=== PATIENT | female | born 1950 | race Caucasian/White ===

== ENCOUNTER 2024-04-08 22:19 | Emergency (ER) | payer MEDICARE, BC, SELFPAY ==
--- NOTE | ~2024-04-08 | CT_ITS ---
EXAMINATION: CT brain wo con DATE: 04/08/2024 23:16 INDICATION: Fall. TECHNIQUE: Computed tomography (CT) of the head was performed without intravenous contrast. The mA wa s adjusted according to patient size. Iterative reconstruction technique was employed. The dose-lengt h product was 681.00 mGy-cm. COMPARISON: None FINDINGS: There is no intracranial hemorrhage, acute infarction, or abnormal intracranial mass lesion . There are scattered areas of low attenuation in the cerebral white matter, which is within normal l imits for the patient's age. The ventricles are normal in size. There is mild mucosal thickening in t he paranasal sinuses. There are likely changes of ocular lens replacement surgeries. There is a small left mastoid effusion. There is a right-sided scalp soft tissue swelling. IMPRESSION: 1. Normal aging brain. Reviewed, dictated and finalized at location A. H CHEMIST IMPRESSION: 1. Normal aging brain.
--- NOTE | ~2024-04-08 | XR_ITS ---
EXAMINATION: XR hip RT min 2V DATE: 04/08/2024 22:50 INDICATION: Fall. TECHNIQUE: 3 views of right hip were obtained. COMPARISON: None. FINDINGS: Alignment is normal. No acute fracture. There is internal fixation of proximal right femur with antegrade intramedullary wilfredo, femoral head/neck screw, and distal interlocking screw. Partially visualized is a lateral plate with screws of the femoral diaphysis with cable. There are changes of a nterior and posterior fusion procedures in lumbosacral spine. There is mild right hip osteoarthritis. IMPRESSION: 1. Mild right hip osteoarthritis. Reviewed, dictated and finalized at location A. CLING ATTENDANT
[2024-04-08 22:19] VITALS: BP 142/63; PULSE 77; RESP 18; TEMP 36.6; O2SAT 100
--- OUTSIDE RECORDS SUMMARY | 2024-04-08 22:20 | XMS_ITS | Referral Summary ---
Author Organization [facility] al Address [address] [place] [address] Care Team Providers Care Butadiene Compressor Operator Name Role Phone Aneudy Cheung MD Primary Care Provider Allergies Active Allergy Reactions Criticality Noted Date Comments Penicillins Hives,Swelling Medium 01/10/2013 Sumatriptan Unknown High 10/16/2017 Medications apixaban (ELIQUIS) 2.5 mg tabletIndications: VTE Prophylaxis Following Ortho Surgery Take 2.5 mg by mouth 2 (two) times a day. Indications: VTE Prophylaxis Following Ortho Surgery Active alendronate (Fosamax) 70 mg tabletIndications: Post-Menopausal Osteoporosis Take 70 mg by mouth every 7 days. Indications: decreased bone mass following menopause Active potassium chloride ER (potassium chloride ER) 10 mEq CR tabletIndications: hypokalemia Take 10 mEq by mouth daily. Indications: low amount of potassium in the blood Active CALCIUM CARBONATE ORALIndications:cerda pplement Take 600 mg by mouth daily. Indications: supplement Active cholecalciferol (Vitamin D3) 2,000 unit tabletIndications: Prevention of Vitamin D Deficiency Take 2,000 Units by mouth daily. Indications: prevention of vitamin D deficiency Active fludrocortisone 0.1 mg tabletIndications: Primary Adrenocortical Insufficiency Take 0.1 mg by mouth daily. 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 Indications: visible water retention Active gabapentin (NEURONTIN) 300 mg capsuleIndications :Neuropathic Pain Take 300 mg by mouth 3 (three) times a day as needed (pain). Indications: neuropathic pain Active levothyroxine (SYNTHROID) 88 mcg tabletIndications: hypothyroidism Take 88 mcg by mouth mobile sales technician before breakfast. Indications: a condition with low thyroid hormone levels Active meclizine (ANTIVERT) 12.5 mg tabletIndications: Vertigo Take 12.5 mg by mouth 3 (three) times a day as needed for dizziness. Indications: sensation of spinning or whirling Active montelukast (SINGULAIR) 10 mg tabletIndications: Maintenance Therapy for Asthma Take 10 mg by mouth nightly. Indications: controller medication for asthma Active multivitamin tabletIndications: Vitamin Deficiency Prevention Take 1 tablet by mouth daily. Indications: Treatment To Prevent Vitamin Deficiency Active oxyCODONE-acetamin ophen (PERCOCET) 5-325 mg per tabletIndications: Pain Take 1 tablet by mouth every 4 (four) hours as needed for pain. Indications: pain Active acetaminophen (TYLENOL) 325 mg tabletIndications: pain Take 650 mg by mouth every 4 (four) hours as needed for pain. Indications: pain Active rOPINIRole (REQUIP) 1 mg tablet 04/06/19 20 Active fluticasone propionate (Flonase Allergy Relief) 50 mcg/actuation nasal spray daily Active pravastatin (PRAVACHOL) 80 mg tablet TAKE 1 TABLET LATE IN THE DAY 11/05/19 19 Active traMADoL (ULTRAM) 50 mg tablet Take 50-100 mg by mouth every 6 (six) hours as needed 05/16/19 20 Active cetirizine (ZyrTEC) 10 mg tablet TAKE ONE TABLET BY MOUTH EVERY DAY 05/26/19 21 Active cyclobenzaprine (FLEXERIL) 5 mg tablet TAKE ONE TABLET BY MOUTH AT BEDTIME 01/05/20 20 Active liraglutide (Victoza 2-Rick) 0.6 mg/0.1 mL (18 mg/3 mL) injection Inject under the skin 06/13/19 21 Active BD Ultra-Fine Micro Pen Needle 32 gauge x 1/4 needle 03/29/19 22 Active Accu-Chek Nicolasa Plus test strp strip USE 1 STRIP TO CHECK GLUCOSE ONCE DAILY 06/12/19 22 Active neomycin-polymyxin -dexAMETHasone (MAXITROL) 3.5mg/mL-10,000 unit/mL-0.1 % ophthalmic suspension INSTILL ONE DROP IN EACH EYE THREE TIMES DAILY 06/18/19 22 Active liraglutide (VICTOZA) 0.6 mg/0.1 mL (18 mg/3 mL) injectionIndicatio ns:type 2 diabetes mellitus Inject 1.8 mg under the skin daily Indications: type 2 diabetes mellitus Active mometasone (NASONEX) 50 mcg/actuation nasal spray Administer 2 sprays into affected nostril(s) daily 08/20/19 22 Active prednisoLONE acetate (PRED FORTE) 1 % ophthalmic suspension ADMINISTER ONE DROP IN BOTH EYES FOUR TIMES DAILY 02/25/20 22 Active sodium chloride (MARIS 128) 2 % ophthalmic solution One drop every 4 hours right eye One drop bid left eye 03/20/19 23 Active sodium chloride 5 % ophthalmic ointment 0.25 inches daily 03/20/19 23 Active metFORMIN (GLUCOPHAGE) 1,000 mg tablet 06/07/19 23 Active fluorometholone (FML) 0.1 % ophthalmic suspension ADMINISTER ONE DROP IN BOTH EYES THREE TIMES DAILY 04/10/19 23 Active eszopiclone (LUNESTA) 3 mg tablet TAKE ONE TABLET BY MOUTH NIGHTLY NEEDED FOR INSOMNIA 06/07/19 23 Active Active Problems Problem Noted Date Diagnosed Date Primary osteoarthritis of right knee 03/17/2019 Dyslipidemia 02/28/2019 Type 2 diabetes mellitus without complication (C MS/HCC) 02/28/2019 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 01/08/2018 CECILIA (obstructive sleep apnea) 08/26/2016 Meibomian gland dysfunction (MGD) 06/14/2014 Immunizations Name Administration Dates Next Due Hep B Vaccine 07/18/2014,03/20/2014 HiB 07/18/2014,03/20/2014 Hib (PRP-OMP) 07/18/2014,03/20/2014 IPV 12/05/2014,03/20/2014 Influenza, Quadrivalent, Hig h Dose, Preservative Free, Intrr 12/10/2021,12/21/2020,10/26/2019 Influenza, Quadrivalent, Spl it, Preservative Free, Intramuscular 11/16/2017 Influenza, Trivalent, High D ose, Split, Preservative Free, Intramuscular 12/04/2018 Influenza, Trivalent, IM (MDV) 11/27/2016 Influenza, Trivalent, Preser vative Free, Intramuscular 12/13/2013 MMR 08/21/2015 Pneumococcal Conjugate PCV 13 10/26/2019 ,12/05/2014,07/18/2014,03/20 Pneumococcal Polysaccharide PPV23 12/10/2021 Polio, Unspecified 03/20/2014 Tdap 07/18/2014,03/20/2014 ZOSTER Recombinant 09/07/2019,05/24/2019 Social History Tobacco Use Types Packs/Day Years Used Date Smoking Tobacco: Former Cigarettes Smokeless Tobacco: Never Tobacco Cessation:Counseling Given: Not Answered Comments No Sex and Gender Information Value Date Recorded Sex Assigned at Not on file Legal Sex 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 Gender Identity Not on file Sexual Orientation Not on file Last Filed Vital Signs Vital Sign Reading Time Taken Comments Blood Pressure 98/54 06/20/2022 11:24 AM CDT Pulse 79 06/20/2022 11:24 AM CDT Temperature 36.4 ??C (97.5 ??F) 06/20/2022 11:19 AM C DT Respiratory Rate 20 06/20/2022 11:19 AM CDT Oxygen Saturation 96% 06/20/2022 11:24 AM CDT Inhaled Oxygen Concentration - - Weight 91 kg (200 lb 9.6 oz) 06/20/2022 11:19 AM CDT Height 153.2 cm (5' 0.32) 06/21/2021 1:40 PM CD T Body Mass Index 38.77 06/21/2021 1:40 PM CDT Plan of Treatment Not on file Procedures Procedure Name Priority Date/Time Associated Diagnosis Comments EGFR Routine 06/20/2022 11:01 AM CDT Acute myeloid leukemia not having achieved remission (HCC) SCREENING MAMMOGRAM 2D BILATERAL Schedule Routine, Read Routine (OP Routine) 07/15/2017 11:09 AM CDT Screening breast examination DEXA AXIAL SKELETON BONE DENSITY 1 OR MORE SITES Schedule Routine, Read Routine (OP Routine) 07/15/2017 10:26 AM CDT Osteopenia of multiple sites SERUM LIPID PANEL Routine 10/27/2014 11: 45 AM CDT SERUM HEPATITIS PANEL Routine 07/15/2013 10:11 AM CDT from Last 3 Months or Most Recently Relevant to Health Maintenance Results * eGFR (06/20/2022 11:01 AM CDT) eGFR >90 90 - 130 mL/min/1. 73 m2 MONICA MAGDALENO Comment: Interpretive Data Reference Interval Normal ?>/= 90 mL/min/1.73m2 Mildly decreased* ? 60 - 89 mL/min/1.73m2 Mildly to moderately decreased ?45 - 59 mL/min/1.73m2 Moderately to severely decreased ??30 - 44 mL/min/1.73m2 Severely decreased ?15 - 29 mL/min/1.73m2 Kidney Failure ?< 15 ??mL/min/1.73m2 *Relative to young adult level Estimated glomerular filtration rate is determined by the 2020 CKD-EPI equation recommended by the National Kidney Foundation (A Unifying Approach to GFR Estimation: Recommendations of the NKF-ASK Task Force on Reassessing the Inclusion of Race in Diagnosing Kidney Disease, JASN 202). The CKD-EPI equation should not be used for patients with unstable renal function and has not been validated in children and those over 70. Current interpretive data was last reviewed 2021. Testing performed by: [facility], [address] [place] [id number] Blood 06/20/2022 11:0 1 AM CDT 06/20/2022 11:02 AM CDT us Brunilda Abreu NP LAB BLOOD ORDERABLES Fin al Result SANJUANAMIGUELINA RASTA [facility] [place] [address] * Screening Mammogram 2D Bilateral (07/15/2017 11:09 AM CDT) Anatomical Region Laterality Modality Breast Bilateral Mammography Narrative 07/20/2017 8:39 AM CDT Screening Mammogram 2D Bilateral: 07/15/17 Clinical: Screening breast examination. ?? Prior Study Comparisons: 07/19/2012 Findings: Bilateral No significant masses, malignant type calcifications, skin thickening, nipple retraction, or significant lymphadenopathy is noted in either breast. ??The CAD review showed no significant findings. The breasts have scattered areas of fibroglandular density. Impression: BI-RADS?? ATLAS category (overall): 1 Negative ?? There is no mammographic evidence of malignancy. Routine Screening Mammogram in 1 Yr is recommended for bilateral Overall Assessment: 1 - Negative Aneudy Cheung MD IMG MAMMO PROCEDURES Final Result * Dexa Axial Skeleton Bone Density 1 or 2 Site (07/15/2017 10:26 AM CDT) Anatomical Region Laterality Modality Body N/A Digital Radiogra phy Impressions 07/15/2017 10:43 AM CDT Low bone mass (osteopenia) which depending on the clinical circumstances may result in a moderate increased risk of fragility fracture. If followup is to be done, for technical reasons, it should be performed on this same machine. Electronically signed by: JAY LEI MD Narrative 07/15/2017 10:43 AM CDT EXAM: ??Bone mineral density [facility]. HISTORY: ??66-year-old postmenopausal female taking calcium and vitamin D. ??Leukemia. DXA BMD was done at [facility] on a [employer] Discovery SL. Precision testing at this site has resulted in a least significant change of: Lumbar spine 0.031 g/sq cm Hip 0.023 g/sq cm BMD left femoral neck is 0.666 g/sq cm corresponding to a T score of -1.6. BMD total left hip is 0.764 g/sq cm corresponding to a T score of -1.5. BMD L1-L2 is 1.130 g/sq cm corresponding to a T score of 1.4. L3 and L4 excluded due to fusion hardware. COMPARISON: ??None. Procedure Note Jay Lei MD - 07/15/2017 EXAM: Bone mineral density [facility]. HISTORY: 66-year-old postmenopausal female taking calcium and vitamin D. Leukemia. DXA BMD was done at [facility] on a [employer] Discovery SL. Precision testing at this site has resulted in a least significant change of: Lumbar spine 0.031 g/sq cm Hip 0.023 g/sq cm BMD left femoral neck is 0.666 g/sq cm corresponding to a T score of -1.6. BMD total left hip is 0.764 g/sq cm corresponding to a T score of -1.5. BMD L1-L2 is 1.130 g/sq cm corresponding to a T score of 1.4. L3 and L4 excluded due to fusion hardware. COMPARISON: None. IMPRESSION: Low bone mass (osteopenia) which depending on the clinical circumstances may result in a moderate increased risk of fragility fracture. If followup is to be done, for technical reasons, it should be performed on this same machine. Electronically signed by: JAY LEI MD Aneudy Cheung MD IM DXA PROCEDURES Final Re sult * (ABNORMAL) Serum lipid panel (10/27/2014 11:45 AM CDT) [facility] Cholesterol 293(H) 0 - 200 mg/dl HISTORICAL RESULTS Comment: Interpretive Data Desirable: ?<200 mg/dL Borderline high: ??200-239 mg/dL High: ? >240 mg/dL Literature Reference: National Cholesterol Education Program (NCEP) Expert Panel on Detection, Evaluation, and Treatment of High Blood Cholesterol in Adults (Adult Treatment Panel III). ??Circulation 2004; 110:227. Current interpretive data was last revised on 2005. Triglycerides 181(H) 0 - 150 mg/dl HISTORICAL RESULTS Comment: Interpretive Data Desirable: ? < 150 mg/dL Borderline High: ? 150 - 199 mg/dL High: ?> 200 mg/dL Literature Reference: See Cholesterol Current interpretive data was last revised on 06. HDL 59 40 - 199 mg/dl HISTORICAL RESULTS Comment: Interpretive Data Less than 40 mg/dL - low; A major risk factor for heart disease. Greater than or equal to 60 mg/dL - High; ??considered protective of heart disease. Literature Reference: See Cholesterol Current interpretive data was last revised on 2007. LDL 197(H) 0 - 129 mg/dl HISTORICAL RESULTS Comment: Interpretive Data Optimal: ? < 100 mg/dL Near Optimal: ?100 - 129 mg/dL Borderline High: ?? 130 - 159 mg/dL High: ?> 160 mg/dL Literature Reference: See Cholesterol Current interpretive data was last revised on 06. Non-HDL cholesterol, calculated 234 mg/dl HISTORICAL RESULTS Comment: Interpretive Data When triglycerides are >200 mg/dL, non-HDL C is a secondary target of therapy, with a goal 30 mg/dL higher than the identified LDL-C goal. Reference: ??See Cholesterol Reference. Current interpretive data was last revised 2011. Serum 10/27/2014 11:4 5 AM CDT us Kim Sanz MD LAB BLOOD ORDERABLES Fi nal Result HISTORICAL RESULTS * Serum Hepatitis panel (07/15/2013 10:11 AM CDT) HBV surface ag Negative NEG HISTO RICAL RESULTS HCV ab Negative NEG HISTORICAL RESULTS Comment: Interpretive Data If confirmation is required, call Laboratory Customer Service to request sample to be sent to [facility] for Hepatitis C Virus (HCV) RNA Detection and Quantitation by Real-Time Reverse Environmental Programs Manager-PCR (RT-PCR). Current interpretive data was last revised on 2011 HBV core ab, IgM Negative NEG HIS TORICAL RESULTS Comment: Interpretive Data If test is reported as Equivocal, new sample should be drawn for testing. Current interpretive data was last revised on 2007. HAV ab, IgM Negative NEG HISTORIC AL RESULTS Comment: Interpretive Data If test is reported as Equivocal, new sample should be drawn in two weeks for testing. Current interpretive data was last revised on 2007. Serum 07/15/2013 10:1 1 AM CDT us Akash Hernandez MD LAB BLOOD ORDERABLES Final Resul t HISTORICAL RESULTS from Last 3 Months or Most Recently Relevant to Health Maintenance Insurance MEDICARE [facility] [employer] CHOICE MEDICARE ANTHEM ACCESS CHOICE MEDICARE ANTHEM ACCESS CHOICE Letitia RUIZ [place] [id number] MEDICARE BLUE ACC CHOICE OOS Care Teams Butadiene Compressor Operator Relationship Specialty Start Date End Date Aneudy Cheung MD [address] [place] [address] PCP - General 05/19/17
--- OUTSIDE RECORDS SUMMARY | 2024-04-08 22:20 | XMS_ITS | Referral Summary ---
Author Organization [employer] Address [address] [place] [address] Phone Care Team Providers Care Energy Sales Consultant Name Role Phone Aneudy Cheung MD Primary Care Provider [phone] Allergies Active Allergy Reactions Criticality Noted Date Comments Penicillin 09/27/2022 Sumatriptan 09/27/2022 Medications levothyroxine (Synthroid, Levoxyl) 88 mcg tabletIndications: hypothyroidism Take 88 mcg by mouth 1 (one) time each day before breakfast. Indications: a condition with low thyroid hormone levels 06/10/19 23 Active tiZANidine (Zanaflex) 4 mg tabletIndications: muscle spasm Take 4 mg by mouth every 8 (eight) hours if needed for muscle spasms. Indications: muscle spasm 12/05/19 22 Active sodium chloride (Mili 128) 2 % ophthalmic solutionIndication s:eye irritation Administer 1 drop into both eyes if needed for irritation. Indications: eye irritation 03/09/19 23 Active pravastatin (Pravachol) 80 mg tabletIndications: hyperlipidemia Take 80 mg by mouth 1 (one) time each day. Indications: excessive fat in the blood 04/24/19 22 Active rOPINIRole (Requip) 1 mg tabletIndications: restless leg syndrome Take 1 mg by mouth 1 (one) time each day. Indications: restless legs syndrome, an extreme discomfort in the calf muscles when sitting or lying down 03/05/20 22 Active fludrocortisone (Florinef) 0.1 mg tabletIndications: symptomatic orthostatic hypotension Take 1 tablet by mouth 1 (one) time each day. Indications: a feeling of dizziness upon standing due to a drop in blood pressure 09/03/19 Active metFORMIN, MOD, (Glumetza) 1,000 mg 24 hr tabletIndications: type 2 diabetes mellitus Take 1,000 mg by mouth 2 (two) times a day with meals. Indications: type 2 diabetes mellitus 06/10/19 Active gabapentin (Neurontin) 300 mg capsuleIndications :neuropathic pain Take 300 mg by mouth 3 (three) times a day. Indications: neuropathic pain 09/03/19 Active potassium chloride ER (Micro-K) 10 mEq ER capsuleIndications :hypokalemia prevention Take 10 mEq by mouth 1 (one) time each day. Indications: prevention of low potassium in the blood 09/09/19 Active furosemide (Lasix) 20 mg tabletIndications: edema Take 20 mg by mouth 1 (one) time each day. Indications: visible water retention 09/09/19 Active eszopiclone (Lunesta) 3 mg tabletIndications: insomnia Take 3 mg by mouth at night if needed for sleep. Indications: difficulty sleeping 06/07/19 Active cetirizine (ZyrTEC) 10 mg capsuleIndications :allergic conjunctivitis Take 10 mg by mouth 1 (one) time each day. Indications: allergic conjunctivitis 03/09/19 Active sodium chloride (Mili 128) 5 % ophthalmic ointmentIndication s:eye irritation Apply 1 application. to both eyes 1 (one) time each day if needed (eye irritation). Indications: eye irritation 03/09/19 Active ilocwfqymjjw-Lp-in on-minerals (Tab-A-Floyd Womens) 27-0.4 mg tabletIndications: vitamin deficiency Take 1 tablet by mouth 1 (one) time each day. Indications: vitamin deficiency 03/09/19 Active Ca comb no.1/vit D3/B6/FA/B12 (VITAMIN D3, CALCIUM CIT-PHOS, ORAL)Indications:s upplemement Take 1 tablet by mouth 1 (one) time each day. Indications: supplemement 03/09/19 Active liraglutide (Victoza 2-Rick) 0.6 mg/0.1 mL (18 mg/3 mL) injectionIndicatio ns:type 2 diabetes mellitus Inject 1.8 mg under the skin 1 (one) time each day. Indications: type 2 diabetes mellitus 09/04/19 Active acetaminophen (Tylenol) 500 mg tabletIndications: pain Take 1,000 mg by mouth every 8 (eight) hours. Indications: pain 09/25/19 Active Social History Tobacco Use Types Packs/Day Years Used Date Smoking Tobacco: Never Assessed OASIS D0700: Social Isolation Answer Da te Recorded Frequency of experiencing loneliness or isolatio n Never 11/06/2022 OASIS A1250: Transportation Answer Date Recorded Lack of Transportation (Medical) No 11/06/2022 Lack of Transportation (Non-Medical) No 11/06/2022 Patient Unable or Declines to Respond No 11/06/2022 OASIS B1300: Health Literacy Answer Eran e Recorded Frequency of needing help to read materials from doctor or pharmacy Never 11/06/2022 Comments Unknown Sex and Gender Information Value Date Recorded Sex Assigned at Not on file Legal Sex Female 3:42 PM CDT Gender Identity Not on file Sexual Orientation Not on file Last Filed Vital Signs Vital Sign Reading Time Taken Comments Blood Pressure 130/70 11/06/2022 8:48 AM CDT Pulse 54 11/06/2022 8:48 AM CDT Temperature 36.2 ??C (97.2 ??F) 11/06/2022 8:48 AM CD T Respiratory Rate 16 11/06/2022 8:48 AM CDT Oxygen Saturation 99% 11/06/2022 8:48 AM CDT Inhaled Oxygen Concentration - - Weight 91.2 kg (201 lb) 11/06/2022 8:48 AM CDT Height - - Body Mass Index - - Plan of Treatment Not on file Insurance MEDICARE Advance Directives For more information, please contact: [phone] (7:30 AM - 5PM [facility], 7 days a week) * Full Code (Latest Code Status on File) Date Activated Date Inactivated Comments 09/27/2022 2:12 PM Care Teams Energy Sales Consultant Relationship Specialty Start Date End Date Aneudy Cheung MD [address] [phone] PCP - General Internal Medicine 09/25/22
--- OUTSIDE RECORDS SUMMARY | 2024-04-08 22:20 | XMS_ITS | Clinical Summary ---
Author Organization [employer] Address [address] [place] [address] Phone Care Team Providers Care Front Desk Manager Name Role Phone Aneduy Cheung MD Primary Care Provider [phone] Allergies Active Allergy Reactions Criticality Noted Date [...] (eye irritation). Indications: eye irritation 03/09/19 Active vjrbgzwcpyjb-Vf-tj on-minerals (Tab-A-Floyd Womens) 27-0.4 mg tabletIndications: vitamin [...] Mass Index - - Plan of Treatment Health Maintenance Due Date Last Done Comments CT Colonography 1952 Colonoscopy 1952 Colorectal Cancer Screening 1952 FIT-DNA 1952 FIT 1952 FOBT 1952 Sigmoidoscopy 1952 MMR Vaccines (1 of 1 - Standard series) 1953 Varicella Vaccines (1 of 2 - 13+ 2-dose series) 1965 Mammogram 1992 DTaP,Tdap,and Td Vaccines (3 - Td or Tdap) 01/18/2015 07/18/2014, 03/20/2014 Complete Fall Risk Assessment 2017 COVID-19 Vaccine ( season) 2023 Influenza Vaccine (#1) 2023 , 12/21/2020, 10/26/2019, Additional history exists RSV Vaccine 60+ or (1 - 1-dose 75+ series) 11/19/2027 Zoster Vaccines Completed 09/07/2019, 05/24/2019 Pneumococcal Vaccine: 65+ Years Completed 12/10/2021, 10/26/2019, 12/05/2014, Additional history exists Pneumococcal Vaccine: Pediatrics (0 to 5 Years) and At-Risk Patients (6 to 64 Years) Aged Out 12/10/2021, 10/26/2019, 12/05/2014, Additional history exists No longer eligible based on patient's age to complete this topic HIB Vaccines Aged Out No longer eligi ble based on patient's age to complete this topic HPV Vaccines Aged Out No longer eligi ble based on patient's age to complete this topic Hepatitis A Vaccines Aged Out No long er eligible based on patient's age to complete this topic Hepatitis B Vaccines Aged Out No long er eligible based on patient's age to complete this topic IPV Vaccines Aged Out No longer eligi ble based on patient's age to complete this topic Meningococcal Vaccine Aged Out No dianelys jenny eligible based on patient's age to complete this topic RSV Vaccine <20 Months Aged Out No lo nger eligible based on patient's age to complete this topic Rotavirus Vaccines Aged Out No longer eligible based on patient's age to complete this topic [place] [address] Advance Directives For more information, please contact: [phone] (7:30 AM - 5PM [facility], 7 days a week) * Full Code (Latest Code Status on File) Date Activated Date Inactivated Comments 09/27/2022 2:12 PM Care Teams Front Desk Manager Relationship Specialty Start Date End Date Aneudy Cheung MD [address] [phone] PCP - General Internal Medicine 09/25/22
--- OUTSIDE RECORDS SUMMARY | 2024-04-08 22:20 | XMS_ITS | Clinical Summary ---
Author Organization [facility] Wilda mejia Address [address] [facility] [address] [place] [address] Care Team Providers Care Manager Costing Name Role Phone Aneudy Cheung MD Primary Care Provider [phone] Allergies Active Allergy Reactions Criticality Noted Date Comments Penicillins Hives High 09/03/2015 Sumatriptan Unknown High 10/16/2017 Medications Cholecalciferol, Vitamin D3, 2,000 unit Capsule Take 4,000 Int'l Units by mouth daily. Active multivitamin (DAILY-EMMA) tablet Take 1 Tablet by mouth daily. Active CALCIUM ORAL Take 1 Tablet by mouth daily. Active Lancing Device (BD LANCET DEVICE) Lancet device. DX: Diabetes type 2 testing BID. 100 Each 2 08/11/19 19 Active Blood-Glucose Meter (Blood Glucose Monitoring) Kit Use to check glucose BID E11.40 ACCUCHEK NICOLASA 1 Each 12/02/19 20 Active blood sugar diagnostic (Accu-Chek Nicolasa Plus test strp) StripIndications:T ype 2 diabetes mellitus with diabetic polyneuropathy, without long-term current use of insulin ([facility]) USE 1 STRIP TO CHECK GLUCOSE DAILY. DX: E11.9 100 Each 8 02/26/20 21 Active mometasone (NASONEX) 50 mcg/actuation Kenneth, Non-Aerosol Administer 2 Sprays in each nostril daily. 17 Gram 08/20/19 22 Active sodium chloride (MARIS-128) 5 % ointment Administer 0.25 Inches in both eyes daily at bedtime. 3.5 Gram 5 03/20/19 23 Active sodium chloride (MARIS 128) 2 % solution One drop every 4 hours right eye One drop bid left eye 15 mL 5 03/20/19 23 Active eszopiclone (LUNESTA) 3 mg TabletIndications: Sleep disturbance Take 1 Tablet (3 mg) by mouth nightly as needed for Insomnia. 30 Tablet 1 06/07/19 23 Active acetaminophen (TYLENOL) 500 mg tablet Take 2 Tablets (1,000 mg) by mouth every 8 hours as needed for Pain. 60 Tablet 10/14/19 23 Active furosemide (LASIX) 40 mg tabletIndications: Edema of left ankle Take 1 Tablet (40 mg) by mouth daily. 30 Tablet 1 12/13/19 23 Active potassium chloride (K-TAB) 20 mEq Extended Release tabletIndications: Edema of left ankle Take 1 Tablet (20 mEq) by mouth daily with breakfast. Take on days that you take Lasix 30 Tablet 1 12/13/19 23 Active pravastatin (PRAVACHOL) 80 mg tablet TAKE 1 TABLET LATE IN THE DAY 100 Tablet 3 02/03/20 23 Active Cetirizine (ZyrTEC) 10 mg CapsuleIndications :Acute recurrent maxillary sinusitis Take 10 mg by mouth daily. 90 Capsule 3 02/21/20 23 Active liraglutide (Victoza 3-Rick) 0.6 mg/0.1 mL (18 mg/3 mL)Indications:Typ e 2 diabetes mellitus with diabetic polyneuropathy, without long-term current use of insulin ([facility]) Inject 1.8 mg by subcutaneous injection daily. 27 mL 3 04/20/19 24 Active Insulin [place], Disposable, (BD Ultra-Fine Micro Pen Needle) 32 gauge x 1/4 Needle USE DIRECTED WITH VICTOZA 100 Each 3 04/20/19 24 Active metFORMIN (GLUCOPHAGE) 1,000 mg tabletIndications: Type 2 diabetes mellitus with diabetic polyneuropathy, without long-term current use of insulin (CMS/HCC) TAKE 1 TABLET BY MOUTH TWICE DAILY WITH MEALS 180 Tablet 3 07/16/19 24 Active rOPINIRole (REQUIP) 1 mg tabletIndications: Restless leg syndrome take 1 tablet daily 90 Tablet 3 07/16/19 24 Active levothyroxine 88 mcg tabletIndications: Acquired hypothyroidism TAKE 1 TABLET BY MOUTH DAILY IN THE MORNING 90 Tablet 3 07/16/19 24 Active tiZANidine (ZANAFLEX) 4 mg TabletIndications: Myalgia, other site Take 1 Tablet (4 mg) by mouth 2 times daily as needed for Spasm. 180 Tablet 3 08/24/19 24 Active traMADoL (ULTRAM) 50 mg tabletIndications: Bilateral leg weakness TAKE ONE TABLET BY MOUTH EVERY TWELVE HOURS NEEDED FOR PAIN 60 Tablet 1 08/24/19 24 Active apixaban (Eliquis) 5 mg tabletIndications: Acute deep vein thrombosis (DVT) of popliteal vein of left lower extremity (CMS/HCC) TAKE 1 TABLET BY MOUTH TWICE DAILY 200 Tablet 3 08/27/19 24 Active empagliflozin (JARDIANCE) 25 mg tablet Take 1 Tablet (25 mg) by mouth daily in the morning. 100 Tablet 3 08/31/19 24 Active fludrocortisone (FLORINEF) 0.1 mg tablet TAKE 1 TABLET BY MOUTH DAILY 90 Tablet 3 02/15/20 24 Active gabapentin (NEURONTIN) 300 mg capsuleIndications :Type 2 diabetes mellitus with diabetic polyneuropathy, without long-term current use of insulin ([facility]) TAKE 1 CAPSULE BY MOUTH 3 TIMES DAILY 270 Capsule 3 02/29/20 24 Active Active Problems Patient Care Coordination No te Formatting of this note migh t be different from the original. Produce Assistant-Dr. Raymond Moore ([place]) Problem Noted Date Diagnosed Date Primary osteoarthritis of right knee 03/17/2019 Acute blood loss anemia 03/17/2019 Dyslipidemia 02/28/2019 Type 2 diabetes mellitus without complication CECILIA (obstructive sleep apnea) 08/26/2016 Morbid obesity due to excess calories 08/26/2016 Encounters Date Type Department Care Team Description 04/05/2024 External Device Data STL ABSTRACTION Provider, Abstract 03/04/2024 Telephone [facility] [place] [address] [place] [address] [address] [place] [phone] Aneudy Cheung MD No Show; No Show # 1 02/28/2024 Refill [facility] [place] [address] [facility] [address] [place] [phone] Aneudy Cheung MD Type 2 diabetes mellitus with diabetic polyneuropathy, without long-term current use of insulin ([facility]) 02/14/2024 [facility] Internal Medicine - [address] [place] [phone] Aneudy Cheung MD from Last 3 Months Immunizations Immunization Administration Dates Next Due (ADACEL/BOOSTRIX)(10 YR UP) TDAP VACCINE, 0.5ML, IM 07/18/2014,03/20/2014 (IPOL)(6 WKS AND UP) POLIOVI LISA VACCINE, INACTIVATED (IPV), 3 DOSE, SUBCUT OR IM 12/05/2014,03/20/2014 (M-M-R II/PRIORIX)(12 MO UP) MEASLES, MUMPS AND RUBELLA VIRUS VACCINE, 0.5 ML IM/SUBCUT 08/21/2015 (PEDVAXHIB)(2 - 71 MOS) HIB PRP-OMP VACCINE, 3 DOSE, 0.5 ML IM0] 07/18/2014,03/20/2014 (PFIZER)(12 YR UP) COVID-19 VACCINE - EMERGENCY USE AUTHORIZATION, MRNA, [id number](PF) 30 MCG/0.3 ML IM SUSP 10/01/2020,09/07/2020 (PREVNAR 13)(6 WKS UP) PNEUM OCOCCAL CONJUGATE (PCV13) 0.5 ML, IM 10/26/2019,12/05/2014,07/18/2014,03/20 (SHINGRIX)(50 YRS UP) ZOSTER VACCINE RECOMBINANT, 0.5 ML, IM 09/06/2019,05/20/2019 HIB, Unspecified Formulation 07/18/2014,03/20/19 15 Hepatitis B Vaccine 07/18/2014,03/20/2014 INFLUENZA VACCINE HIGH DOSE QUADRIVALENT 65 YR UP PF IM 12/12/2022,12/10/2021,12/21/2020,10/25 INFLUENZA VACCINE QUADRIVALE NT 3 YR UP PF IM 11/16/2017 Influenza Seasonal Unspecifi ed Formulation PF IM 12/13/2013 Influenza Vaccine High Dose 65+ Yrs IM 9 Influenza Vaccine Split 3+ Yrs IM 11/27/2016 PNEUMOVAX (PPSV23) pneumococ juliet polysaccharide 23-valent Vaccine 12/10/2021 Poliovirus Vaccine, Unspecif ied Formulation 03/20/2014 Family History Medical History Relation Name Comments Diabetes Brother Heart Disease Brother Healthy Daughter 1 Kaylan Bipolar Disorder Daughter 2 Gia Aneurysm Father Heart Disease Father Blindness Maternal Aunt Diabetes Maternal Aunt Cancer Maternal Cousin Major Thryoid Heart Disease Maternal Grandfather Diabetes Maternal Grandmother Diabetes Mother Heart Disease Mother Tuberculosis Mother Heart Disease Paternal Grandfather Unknown Paternal Grandmother Diabetes Sister Heart Disease Sister Tuberculosis Sister Healthy Son Sheldon Breast Cancer Neg Hx Ovarian Cancer Neg Hx Relation Name Status Comments Brother Daughter 1 Kaylan Alive Daughter 2 Gia Alive Father Maternal Aunt Alive Maternal Cousin Major Alive Maternal Grandfather Maternal Grandmother Mother Paternal Grandfather Paternal Grandmother Sister Son Sheldon Alive Social History Tobacco Use Types Packs/Day Years Used Date Smoking Tobacco: Former Cigarettes 0.3 10 0 03/09/1986 - 03/09/1996 Smokeless Tobacco: Never Tobacco Cessation:Counseling Given: Not Answered Alcohol Use Standard Drinks/Week Comments No 0 (1 standard drink = 0.6 oz pur e alcohol) Financial Resource Strain Answer Date R ecorded How hard is it for you to pa y for the very basics like food, housing, medical care, and heating? Somewhat hard 12/24/2021 Food Insecurity Answer Date Recorded In the past 12 months, have you worried that your food would run out before you had money to buy more? Patient declined 2021 In the past 12 months, did y ou run out of food and didn't have money to buy more? Patient declined 12/24/2021 Transportation Needs Answer Date Record ed In the past 12 months, has l ack of transportation kept you from medical appointments or from getting medications? No 12/24/2021 Lack of Transportation (Non-Medical) Not on file 12/24/2021 Feeling Safe Answer Date Recorded Are you in a relationship wi th someone who hurts you emotionally and/or physically? No 09/23/2022 Food Insecurity Answer Date Recorded Patient needs follow up regarding: Not on file 05/11/2023 Transportation Needs Answer Date Record ed Patient needs follow up regarding: Not on file 05/11/2023 Housing Stability Answer Date Recorded Patient needs follow up regarding: Not on file 05/11/2023 Utility Needs Answer Date Recorded Patient needs follow up regarding: Not on file 05/11/2023 Comments No Sex and Gender Information Value Date Recorded Sex Assigned at Not on file Legal Sex Female 12:21 PM CDT Gender Identity Not on file Sexual Orientation Not on file Last Filed Vital Signs Vital Sign Reading Time Taken Comments Blood Pressure 128/76 08/24/2023 11:26 AM CDT Pulse 90 08/24/2023 11:26 AM CDT Temperature 36.8 ??C (98.2 ??F) 08/24/2023 11:26 AM C DT Respiratory Rate 12 06/10/2023 12:56 PM CDT Oxygen Saturation 96% 08/24/2023 11:26 AM CDT Inhaled Oxygen Concentration - - Weight 90 kg (198 lb 6.4 oz) 08/24/2023 11:26 AM CDT Height 152.4 cm (5') 08/24/2023 11:26 AM CDT Body Mass Index 38.75 08/24/2023 11:26 AM CDT Plan of Treatment Upcoming Encounters Date Type Department Care Team (Late st Contact Info) Description 06/08/2024 1:00 PM CDT Office Visit [facility] Pulmonology and Sleep Med - [address] [place] [phone] Rocco Lemos MD [address] [place] [phone] 08/25/2024 10:00 AM CDT Office Visit [facility] [place] [address] [facility] [address] [place] [phone] Aneudy Cheung MD [address] [facility] [address] [place] [phone] Health Maintenance Due Date Last Done Comments FIT/FOBT Q 1 YEAR (AUTO ORDER) 1970 COLORECTAL CANCER SCREENING (AUTO ORDER) 1997 COLORECTAL SCREENING 1997 FIT/FOBT Q 1 year 1997 Flex Sig/CT Colonography Q 5 years 1997 RSV VACCINE (60+ or ) (1 - Risk 60-74 years 1-dose series) 2012 DIABETES ANNUAL RETINAL EXAM 04/10/202304/2022, 04/10/2022, 04/10/2022, Additional history exists INFLUENZA VACCINE (#1) 2023 3, 12/10/2021, 12/21/2020, Additional history exists DIABETES HBA1C Q 6 MONTHS 02/23/20242023, 02/20/2023, 09/12/2022, Additional history exists Colorectal Cancer Screening 06/03/2024 FIT-DNA Q 3 years 06/03/2024 06/03/2021 FIT/ DNA Q 3 YEARS (AUTO ORDER) 06/03/2024 , 06/03/2021 DIABETES ANNUAL FOOT EXAM 08/23/20242023, 06/06/2022, 06/06/2022, Additional history exists DIABETES MICROALBUMIN ANNUAL SCREEN 08/23/2024 08/24/2023, 06/06/2022, 06/01/2020, Additional history exists DIABETES: A1C (Auto Order) 08/23/202408/23, 02/20/2023, 09/12/2022, Additional history exists LDL CHOLESTEROL ANNUAL 08/23/2024 , 02/20/2023, 06/06/2022, Additional history exists Traditional Medicare (ACO) A nnual Wellness Visit 08/24/2024 08/24/2023, 12/30/2022, 12/24/2021, Additional history exists Colorectal Cancer Screening (AUTO ORDER) 06/03/2026 FLEX SIG/CT COLONOGRAPHY Q 5 YEARS (AUTO ORDER) 06/03/2026 06/03/2021, 06/03/2021 DTAP/TDAP/TD VACCINES Discontinued 07/18/2014, 015 OSTEOPOROSIS SCREENING Completed 8, 07/15/2017, 07/15/2017 ZOSTER VACCINE Completed 09/06/2019, 05/20/2019 COVID-19 Vaccine Discontinued 10/01/2020, 09/07/2020 PNEUMOCOCCAL VACCINE 65+ YEARS Completed 1 , 10/26/2019, 12/05/2014, Additional history exists Medical Devices Implanted Type Area Flat Surfacer Jewel Device Identifier Shelf Expiration Date Model / Serial / Lot Cable W/Crimp Ss 1.7 X 750mm 298.801.01s - [id number] Implanted:Qty : 1 on 09/23/2022 by Dahlia Durbin DO at [facility] Cable Right: Hip J&J- DEPUY SYNTHES 298.801.01S / / Cement Refobacin R 1x40gm [id number] - [id number] Implanted:Qty : 1 on 03/17/2019 by Sekou Rudd MD at [facility] Cement Right: Knee [employer] 11/06/2020 [id number] / / [id number] Cement Refobacin R 1x40gm [id number] - [id number] Implanted:Qty : 1 on 03/17/2019 by Sekou Rudd MD at [facility] Cement Right: Knee [employer] 11/06/2020 [id number] / / [id number] Stem Ext Nxgn 31l43xc 55-2229-778-1 5 - [id number] Implanted:Qty : 1 on 03/17/2019 by Sekou Rudd MD at [facility] Knee Right: Knee [employer] 02/05/2029 [id number] / / [id number] Comp Fem Nxgn Lcck 77-5696-528-9 2 - [id number] Implanted:Qty : 1 on 03/17/2019 by Sekou Rudd MD at [facility] Knee Right: Knee [employer] 05/06/202878-8368-353-9 2 / / [id number] Comp Tib Nxgn Stmd 58-6989-503-0 1 - [id number] Implanted:Qty : 1 on 03/17/2019 by Sekou Rudd MD at [facility] Knee Right: Knee [employer] 12/23/202813-0164-114-0 1 / / [id number] Stem Ext Nxgn [id number] 83-3564-583-1 4 - [id number] Implanted:Qty : 1 on 03/17/2019 by Sekou Rudd MD at [facility] Knee Right: Knee [employer] 07/07/2027 [id number] / / [id number] Patella Psn Ply 29mm 26-7573-039-2 9 - [id number] Implanted:Qty : 1 on 03/17/2019 by Sekou Rudd MD at [facility] Knee Right: Knee [employer] 12/06/2026 37-7598-187-2 9 / / [id number] Insert Nexgen Lcck 43-7663-314-1 4 - [id number] Implanted:Qty : 1 on 03/17/2019 by Sekou Rudd MD at [facility] Knee Right: Knee [employer] 09/05/2025 [id number] / / [id number] Lens Iol [place] 21.5 Sy60wf.215 - [id number] Implanted:Qty : 1 on 01/16/2022 by Oswaldo Coates DO at [facility] Lens Right: Eye [facility] [id number] 06/09/2025 SY60WF.215 / [id number] / Lens Iol [place] 21.5 Sy60wf.215 - [id number] Implanted:Qty : 1 on 01/23/2022 by Oswaldo Coates DO at [facility] Lens Left: Eye [facility] 06/15/2025 SY60WF.215 / [id number] / Nail Tfna [id number] 130?? 04.037.044s - [id number] Implanted:Qty : 1 on 09/23/2022 by Dahlia Durbin DO at [facility] Nail Right: Hip J&J- DEPUY SYNTHES 12/07/2031 04.037.044S / / [id number] Blade Helical Tfna 80mm 04.038.380s - [id number] Implanted:Qty : 1 on 09/23/2022 by Dahlia Durbin DO at [facility] Nail Right: Hip J&J- DEPUY SYNTHES 07/06/2030 04.038.380S / / [id number] Plate Condylar 4.5 Va-Lcp 02.124.414 - [id number] Implanted:Qty : 1 on 09/23/2022 by Dahlia Durbin DO at [facility] Plate Right: Hip J&J- DEPUY SYNTHES 02.124.414 / / Low Prof Lckng Screw F/Im Nail Implanted:Qty : 1 on 09/23/2022 by Dahlia Durbin DO at [facility] Right: Hip 10/07/2031 DEPUY SYNTHES-04.04 5.334S / / [id number] 5.0mm Locking Screw.26mm Implanted:Qty : 1 on 09/23/2022 by Dahlia Durbin DO at [facility] Right: Hip SYNTHES-42.23 1.226 / / 5.0mm Locking Screw.26mm Implanted:Qty : 1 on 09/23/2022 by Dahlia Durbin DO at [facility] Right: Hip SYNTHES-42.23 1.226 / / 5.0mm Locking Screw, 28mm Implanted:Qty : 1 on 09/23/2022 by Dahlia Durbin DO at [facility] Right: Hip SYNTHES-42.23 1.228 / / 5.0mm Locking Screw, 18mm Implanted:Qty : 1 on 09/23/2022 by Dahlia Durbin DO at [facility] Right: Hip SYNTHES-42.23 1.018 / / 5.0mm Locking Screw, 28mm Implanted:Qty : 1 on 09/23/2022 by Dahlia Durbin DO at [facility] Right: Hip SYNTHES-42.23 1.228 / / 5.0mm Locking Screw..16mm Implanted:Qty : 1 on 09/23/2022 by Dahlia Durbin DO at [facility] Right: Hip SYNTHES-42.23 1.016 / / 5.0mm Locking Screw..16mm Implanted:Qty : 1 on 09/23/2022 by Dahlia Durbin DO at [facility] Right: Hip SYNTHES-42.23 1.016 / / 5.0mm Locking Screw, 18mm Implanted:Qty : 1 on 09/23/2022 by Dahlia Durbin DO at [facility] Right: Hip SYNTHES-42.23 1.018 / / 5.0mm Locking Screw, 28mm Implanted:Qty : 1 on 09/23/2022 by Dahlia Durbin DO at [facility] Right: Hip SYNTHES-42.23 1.228 / / 34 Mm Variable Angle Locking Screw Implanted:Qty : 1 on 09/23/2022 by Dahlia Durbin DO at [facility] Right: Hip SYNTHES-42.23 1.234 / / 32 Mm- 5.0 Variable Angle Locking Implanted:Qty : 1 on 09/23/2022 by Dahlia Durbin DO at [facility] Right: Hip SYNTHES-42.23 1.232 / / 3.5 Va Locking Attachment Plate Implanted:Qty : 1 on 09/23/2022 by Dahlia Durbin DO at [facility] Right: Hip SYNTHES-02.22 1.174 / / Procedures Procedure Name Priority Date/Time Associated Diagnosis Comments LIPID PANEL Routine 08/24/2023 12:00 PM CDT Type 2 diabetes mellitus with diabetic polyneuropathy, without long-term current use of insulin ([facility]) Mixed hyperlipidemia HEMOGLOBIN A1C Routine 08/24/2023 12:00 PM CDT Type 2 diabetes mellitus with diabetic polyneuropathy, without long-term current use of insulin ([facility]) Mixed hyperlipidemia MICROALBUMIN/CREATI NINE RATIO, RANDOM UR Routine 08/24/2023 12:00 AM CDT Type 2 diabetes mellitus with diabetic polyneuropathy, without long-term current use of insulin ([facility]) COLON CANCER SCREEN, STOOL DNA Routine 06/03/2021 2:30 PM CDT Special screening for malignant neoplasms, colon XR DEXA BONE DENSITY AXIAL 1 OR MORE SITES Routine 07/15/2017 Osteopenia of multiple sites from Last 3 Months or Most Recently Relevant to Health Maintenance Results * (ABNORMAL) HEMOGLOBIN A1C (08/24/2023 12:00 PM CDT) HEMOGLOBIN A1C 6.5(H) <5.7 % of total Hgb [facility] Comment: For someone without known diabetes, a hemoglobin A1c value of 6.5% or greater indicates that they may have diabetes and this should be confirmed with a follow-up test. For someone with known diabetes, a value <7% indicates that their diabetes is well controlled and a value greater than or equal to 7% indicates suboptimal control. A1c targets should be individualized based on duration of diabetes, age, comorbid conditions, and other considerations. Currently, no consensus exists regarding use of hemoglobin A1c for diagnosis of diabetes for children. ?? ESTIMATED AVERAGE GLUCOSE (MG/DL) 140 mg/dL [facility] ESTIMATED AVERAGE GLUCOSE (MMOL/L) 7.7 mmol/L [facility] Comment: ? This test was performed on the Alessio stanley c503 platform. Effective 05/25/23, a change in test platforms from the [employer] Analyst to the Alessio stanley c503 may have shifted HbA1c results compared to historical results. Based on laboratory validation testing conducted at [facility], the Alessio platform relative to the Dunlap platform had an average increase in HbA1c value of < or = 0.3%. This difference is within accepted variability established by the National Glycohemoglobin Standardization Program. Note that not all individuals will have had a shift in their results and direct comparisons between historical and current results for testing conducted on different platforms is not recommended. Test Performed at: [facility] [place] [address] [address] [place] ??[phone] [facility] Blood 08/24/2023 12:0 0 PM CDT 08/24/2023 12:00 PM CDT us Aneudy Cheung MD CHEMISTRY ORDERABLES Final Res ult [facility] [phone] [facility] [place] [address] [address] [place] [address] * (ABNORMAL) LIPID PANEL (08/24/2023 12:00 PM CDT) CHOLESTEROL 240(H) <200 mg/dL [facility] HDL 50 > OR = 50 mg/dL [facility] TRIGLYCERIDE 112 <150 mg/dL [facility] LDL CALCULATED 166(H) mg/dL (calc) [facility] Comment: Reference range: <100 Desirable range <100 mg/dL for primary prevention; ?? <70 mg/dL for patients with CHD or diabetic patients with > or = 2 CHD risk factors. LDL-C is now calculated using the Viktoria calculation, which is a validated novel method providing better accuracy than the Friedewald equation in the estimation of LDL-C. Mike NGUYEN et al. JEANNIE. 2013;310(19): 7738-6063 (http://education.[employer]/faq/XXO785) CHOL/HDL RATIO 4.8 <5.0 (calc) [facility] NON-HDL CHOLESTEROL 190(H) <130 mg/dL (calc) [facility] Comment: For patients with diabetes plus 1 major ASCVD risk factor, treating to a non-HDL-C goal of <100 mg/dL (LDL-C of <70 mg/dL) is considered a therapeutic option. Test Performed at: [facility] [place] [address] [place] ??[phone] [facility] Blood 08/24/2023 12:0 0 PM CDT 08/24/2023 12:00 PM CDT us Aneudy Cheung MD CHEMISTRY ORDERABLES Final Res ult [facility] [phone] [place] [address] [place] [address] * MICROALBUMIN/CREATININE RATIO, RANDOM UR (08/24/2023 12:00 AM CDT) Creatinine, Urine 140 20 - 275 mg/dL [facility] MICROALBUMIN, URINE 0.8 See Note: mg/dL [facility] Comment: Reference Range: Reference Range Not established MICROALBUMIN/CREAT RATIO, UR 6 <30 mg/g creat [facility] Comment: The ADA defines abnormalities in albumin excretion as follows: Albuminuria Category ?Result (mg/g creatinine) Normal to Mildly increased ?? <30 Moderately increased ? 30-299 Severely increased ? > OR = 300 The ADA recommends that at least two of three specimens collected within a 3-6 month period be abnormal before considering a patient to be within a diagnostic category. Test Performed at: [facility] [address] [place], [place] ??[address] [facility] Richardson MD Urine URINE SPECIMEN OBTAINED BY CLEAN CATCH PROCEDURE / Unknown 08/24/2023 08/25/2023 6:40 AM CDT Aneudy Cheung MD URINE ORDERABLES Final Result [facility] [phone] [facility] [address] [place] [address] * COLON CANCER SCREEN, STOOL DNA (06/03/2021 2:30 PM CDT) COLOGUARD RESULT Negative Negative [facility] Comment: NEGATIVE TEST RESULT. A negative Cologuard result indicates a low likelihood that a colorectal cancer (CRC) or advanced adenoma (adenomatous polyps with more advanced pre-malignant features) ??is present. The chance that a person with a negative Cologuard test has a colorectal cancer is less than 1 in 1500 (negative predictive value >99.9%) or has an ??advanced adenoma is less than ??5.3% (negative predictive value 94.7%). These data are based on a prospective cross-sectional study of 10,000 individuals at average risk for colorectal cancer who were screened with both Cologuard and colonoscopy. (Julianne Middleton al, N Engl J Med 2014;370(14):0266-7548) The normal value (reference range) for this assay is negative. COLOGUARD RE-SCREENING RECOMMENDATION: Periodic colorectal cancer screening is an important part of preventive healthcare for asymptomatic individuals at average risk for colorectal cancer. ??Following a negative Cologuard result, the [place] Cancer Society and U.S. Multi-Society Task Force screening guidelines recommend a Cologuard re-screening interval of 3 years. References: [place] [employer] Guideline for Colorectal Cancer Screening: https://www.cancer.org/cancer/izvsk-asgaji-ufpeng/trqctnrwn-uniubkmql-vhttisr/ac s-rec ommendations.html.; Cody DK, Gerardo CR, Genny JamesK, Colorectal Cancer Screening: Recommendations for Physicians and Patients from the U.S. Multi-Society Task Force on Colorectal Cancer Screening , Am J Gastroenterology 2017; 112:6358-8477. TEST DESCRIPTION: Composite algorithmic analysis of stool DNA-biomarkers with hemoglobin immunoassay. ?? Quantitative values of individual biomarkers are not reportable and are not associated with individual biomarker result reference ranges. Cologuard is intended for colorectal cancer screening of adults of either sex, 45 years or older, who are at average-risk for colorectal cancer (CRC). Cologuard has been approved for use by the U.S. FDA. The performance of Cologuard was established in a cross sectional study of average-risk adults aged 50-84. Cologuard performance in patients ages 45 to 49 years was estimated by sub-group analysis of near-age groups. Colonoscopies performed for a positive result may find as the most clinically significant lesion: colorectal cancer [4.0%], advanced adenoma (including sessile serrated polyps greater than or equal to 1cm diameter) [20%] or non- advanced adenoma [31%]; or no colorectal neoplasia [45%]. These estimates are derived from a prospective cross-sectional screening study of 10,000 individuals at average risk for colorectal cancer who were screened with both Cologuard and colonoscopy. (Julianne Bailon et al, N Engl J Med 2014;370(14):9628-0026.) Cologuard may produce a false negative or false positive result (no colorectal cancer or precancerous polyp present at colonoscopy follow up). A negative Cologuard test result does not guarantee the absence of CRC or advanced adenoma (pre-cancer). The current Cologuard screening interval is every 3 years. ([place] [employer] and U.S. Multi-Society Task Force). Cologuard performance data in a 10,000 patient pivotal study using colonoscopy as the reference method can be accessed at the following location: www.Around Knowledge.Flashstarts/results. Additional description of the Cologuard test process, warnings and precautions can be found at www.Streakrd.com. Stool STOOL SPECIMEN / Unknown 06/03/2021 2:30 PM CDT 06/04/2021 9:14 PM CDT Aneudy Cheung MD BODY FLUIDS AND STOOLS Final R esult [employer] LINA BOJORQUEZ # [id number] [address] , [address] [place] [address] * (ABNORMAL) XR DEXA BONE DENSITY AXIAL 1 OR MORE SITES (07/15/2017) Anatomical Region Laterality Modality Other Aneudy Cheung MD DIAGNOSTIC IMAGING ORDERABLES Final Result from Last 3 Months or Most Recently Relevant to Health Maintenance Insurance [address] [place] [id number] MEDICARE PART A AND B [address] [id number] [employer] Medicare Part D Advance Directives For more information, please contact: [phone] * Full Code (Latest Code Status on File) Date Activated Date Inactivated Comments 09/23/2022 5:43 PM 09/24/2022 11:13 PM * Full Code Date Activated Date Inactivated Comments 09/23/2022 9:36 AM 09/23/2022 5:43 PM * Full Code Date Activated Date Inactivated Comments 09/23/2022 8:57 AM 09/23/2022 9:36 AM * Full Code Date Activated Date Inactivated Comments 01/23/2022 11:39 AM 01/23/2022 2:46 PM * Full Code Date Activated Date Inactivated Comments 01/23/2022 11:27 AM 01/23/2022 11:39 AM Care Teams Manager Costing Relationship Specialty Start Date End Date Aneudy Cheung MD [address] [place] [address] [place] [address] PCP - General Internal Medicine 09/03/15
--- OUTSIDE RECORDS SUMMARY | 2024-04-08 22:20 | XMS_ITS | Clinical Summary ---
Author Organization [facility] Address [address] [place] [address] Care Team Providers Care Nut Orchardist Name Role Phone Aneudy Cheung MD Primary [...] the adrenal glands produce less hormones called [place]'s disease Active furosemide (LASIX) 20 mg tabletIndications: Edema Take 20 mg by mouth daily. Indications: visible water retention Active gabapentin (NEURONTIN) 300 mg capsuleIndications :Neuropathic Pain Take 300 mg by mouth 3 (three) times a day as needed (pain). 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 Gender Identity Not on file Sexual Orientation Not on file Obstetrics History Para Term AB IAB SAB Ectopic Multiple Livin g Live Births 4 Date Outcome GA Total Labor Labor/2nd/3rd Weight Sex Type Anes PTL Cyndi A1 A5 Name Clin Last Filed Vital Signs Vital Sign Reading [...] 06/21/2021 1:40 PM CDT Plan of Treatment Health Maintenance Due Date Last Done Comments Albumin Creatinine Ratio, Urine 1952 Colon Cancer Screening-Colonoscopy 1952 Depression Screening 1952 Fall Risk Assessment 1950 Hemoglobin A1C 1952 Dilated Eye Exam 1952 Foot Exam 1950 Well Visit 65+ 2017 Osteoporosis Screening-Bone Density Scan 07/16/2019 07/15/2017, 07/15/2017, 07/15/2017, Additional history exists Covid-19 Vaccine (3 - Pfizer risk series) 10/29/2020 10/01/2020, 09/07/2020 Breast Cancer Screening-Mammogram 06/01/2021 06/01/2020, 12/10/2018, 07/20/2017, Additional history exists Lipid Panel 06/01/2021 06/01/2020, 08/07, 10/28/2018, Additional history exists eGFR 06/21/2023 06/20/2022, 06/21/2021 Influenza Vaccine (#1) 2023 , 12/21/2020, 10/26/2019, Additional history exists DTaP/Tdap/Td Vaccine (3 - Td or Tdap) 07/18/2024 07/18/2014, 03/20/2014 Hepatitis C Screening Completed 07/15/2013, 014 Zoster Vaccine Completed 09/07/2019, 05/24/2019 Pneumococcal vaccine 65+ Completed 022, 10/26/2019, 12/05/2014, Additional history exists Procedures Procedure Name Priority Date/Time Associated Diagnosis [...] 90 - 130 mL/min/1. 73 m2 MONICA BAER Comment: Interpretive Data Reference Interval Normal ?>/= [...] of Race in Diagnosing Kidney Disease, JASN 2020). The CKD-EPI equation should not be used for patients with unstable renal function and has not been validated in children and those over 70. Current interpretive data was last reviewed 2021. Testing performed by: [facility], [address] [place] [id number] Blood 06/20/2022 11:0 1 AM CDT 06/20/2022 11:02 AM CDT us Brunilda Abreu PLATE GLASS GRINDER LAB BLOOD ORDERABLES Fin al Result MONICA MAGDALENO [facility] Department [place] [address] * Screening Mammogram 2D Bilateral (07/15/2017 11:09 [...] for bilateral Overall Assessment: 1 - Negative us Aneudy Cheung MD IM MAMMO PROCEDURES Final Result * Dexa Axial [...] 10:43 AM CDT EXAM: ??Bone mineral density [facility]. HISTORY: ??66-year-old postmenopausal female taking calcium and vitamin D. ??Leukemia. DXA BMD was done at [facility] on a Soundtracker Discovery SL. Precision testing at this site [...] MD - 07/15/2017 EXAM: Bone mineral density [facility]. HISTORY: 66-year-old postmenopausal female taking calcium and vitamin D. Leukemia. DXA BMD was done at [facility] on a Hologic Discovery SL. Precision testing at this site [...] Serum lipid panel (10/27/2014 11:45 AM CDT) [facility] Cholesterol 293(H) 0 - 200 mg/dl HISTORICAL [...] to request sample to be sent to [facility] for Hepatitis C Virus (HCV) RNA Detection and Quantitation by Real-Time Reverse Head Bander And Liner Operator-PCR (RT-PCR). Current interpretive data was last revised [...] Recently Relevant to Health Maintenance Insurance MEDICARE [facility] [employer] CHOICE MEDICARE ANTHEM ACCESS CHOICE MEDICARE ANTHEM ACCESS CHOICE MEDICARE [facility] CHOICE OOS Care Teams Nut Orchardist Relationship Specialty Start Date End Date Aneudy Cheung MD [address] [place] [address] PCP - General 05/19/17
--- OUTSIDE RECORDS SUMMARY | 2024-04-08 22:20 | XMS_ITS | Clinical Summary ---
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 Gender Identity Not on file Sexual Orientation Not on file Plan of Treatment Health Maintenance Due Date Last Done Comments DTAP/TDAP/TD VACCINES (1 - Tdap) 11/19/1971 BREAST CANCER SCREENING 1992 COLORECTAL SCREENING 1997 Colorectal Cancer Screening 1997 FIT-DNA Q 3 years 1997 FIT/FOBT Q 1 year 1997 Flex Sig/CT Colonography Q 5 years 1997 PNEUMOCOCCAL VACCINE 65+ YEARS (1 of 1 - PCV) 11/19/19 03 ZOSTER VACCINE (1 of 2) 2002 OSTEOPOROSIS SCREENING 2017 INFLUENZA VACCINE (#1) 2023 RSV VACCINE (60+ or ) (1 - 1-dose 75+ series) 11/19/2027 Insurance [facility] Care Teams Call Center Specialist Relationship Specialty Start Date End Date Non-Staff, Physician NO ADDRESS ON FILE PCP - General 09/19/10
--- OUTSIDE RECORDS SUMMARY | 2024-04-08 23:05 | XMS_ITS | Clinical Summary ---
Author Organization [facility] Address [address] [place] [address] Care Team Providers Care Watch Guard Gate Name Role Phone Aneudy Cheung MD Primary Care Provider [phone] Allergies Active Allergy Reactions Criticality Noted Date [...] the adrenal glands produce less hormones called [place]ander's disease Active furosemide (LASIX) 20 mg tabletIndications: Edema Take 20 mg by mouth daily. Indications: visible water retention Active gabapentin (NEURONTIN) 300 mg capsuleIndications :Neuropathic Pain Take 300 mg by mouth 3 (three) times a day as needed (pain). Indications: neuropathic pain Active levothyroxine (SYNTHROID) 88 mcg tabletIndications: hypothyroidism Take 88 mcg by mouth negative cutter before breakfast. 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 Testing performed by: [facility], [address] [place] [id number] Blood 06/20/2022 11:0 1 AM CDT 06/20/2022 11:02 AM CDT us Brunilda Abreu ELECTRIC METER SETTER LAB BLOOD ORDERABLES Fin al Result MONICA MAGDALENO [facility] [place] [address] * Screening Mammogram 2D Bilateral (07/15/2017 11:09 [...] 10:43 AM CDT EXAM: ??Bone mineral density [facility]. HISTORY: ??66-year-old postmenopausal female taking calcium and vitamin D. ??Leukemia. DXA BMD was done at [facility] on a NETpeas Discovery SL. Precision testing at this site [...] MD - 07/15/2017 EXAM: Bone mineral density [facility]. HISTORY: 66-year-old postmenopausal female taking calcium and vitamin D. Leukemia. DXA BMD was done at [facility] on a Hologic Discovery SL. Precision testing [...] Serum lipid panel (10/27/2014 11:45 AM CDT) [facility] Cholesterol 293(H) 0 - 200 mg/dl [...] to request sample to be sent to [facility] for Hepatitis C Virus (HCV) RNA Detection and Quantitation by Real-Time Reverse Custom Tailor-PCR (RT-PCR). Current interpretive data was last revised [...] Recently Relevant to Health Maintenance Insurance MEDICARE [facility] [employer] CHOICE MEDICARE ANTHEM ACCESS CHOICE MEDICARE ANTHEM ACCESS CHOICE MEDICARE [facility] CHOICE OOS Care Teams Watch Guard Gate Relationship Specialty Start Date End Date Aneudy Cehung MD [address] [place] [address] PCP - General 05/19/17
--- OUTSIDE RECORDS SUMMARY | 2024-04-08 23:05 | XMS_ITS | Referral Summary ---
Author Organization [facility] Address [address] [place] [address] Care Team Providers Care Nurses Educator Name Role Phone Aneudy Cheung MD Primary Care Provider [phone] Allergies Active Allergy Reactions Criticality Noted Date [...] the adrenal glands produce less hormones called [place]'s disease Active furosemide (LASIX) 20 mg tabletIndications: Edema Take 20 mg by mouth daily. Indications: visible water retention Active gabapentin (NEURONTIN) 300 mg capsuleIndications :Neuropathic Pain Take 300 mg by mouth 3 (three) times a day as needed (pain). 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 Testing performed by: [facility], [address] [place] [phone] Blood 06/20/2022 11:0 1 AM CDT 06/20/2022 11:02 AM CDT us Brunilda Abreu NP LAB BLOOD ORDERABLES Fin al Result SANJUANAMIGUELINA RASTA One [facility] [place] [address] * Screening Mammogram 2D Bilateral (07/15/2017 11:09 [...] 10:43 AM CDT EXAM: ??Bone mineral density [facility]. HISTORY: ??66-year-old postmenopausal female taking calcium and vitamin D. ??Leukemia. DXA BMD was done at [facility] on a GetBulb Discovery SL. Precision testing at this site [...] MD - 07/15/2017 EXAM: Bone mineral density [facility]. HISTORY: 66-year-old postmenopausal female taking calcium and vitamin D. Leukemia. DXA BMD was done at [facility] on a HoloSemadic Discovery SL. Precision testing at this site [...] Serum lipid panel (10/27/2014 11:45 AM CDT) [facility] Cholesterol 293(H) 0 - 200 mg/dl HISTORICAL [...] to request sample to be sent to [facility] for Hepatitis C Virus (HCV) RNA Detection and Quantitation by Real-Time Reverse Career Development Associate-PCR (RT-PCR). Current interpretive data was last revised [...] Recently Relevant to Health Maintenance Insurance MEDICARE [facility] Address: [address] [address] [place] [address] [facility] [email or web address] CHOICE MEDICARE ANTHEM ACCESS CHOICE MEDICARE ANTHEM ACCESS CHOICE Letitia RUIZ [place] [id number] MEDICARE BLUE ACC CHOICE OOS Care Teams Nurses Educator Relationship Specialty Start Date End Date Aneudy Cheung MD [address] [place] [address] PCP - General 05/19/17
--- OUTSIDE RECORDS SUMMARY | 2024-04-08 23:05 | XMS_ITS | Clinical Summary ---
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
--- OUTSIDE RECORDS SUMMARY | 2024-04-08 23:05 | XMS_ITS | Referral Summary ---
Author Organization [facility] Address [address] [place] [address] Phone Care Team Providers Care Can Tender Name Role Phone Aneudy Cheung MD Primary Care Provider [phone] Allergies Active Allergy Reactions Criticality Noted Date [...] (eye irritation). Indications: eye irritation 03/09/19 Active dlyiivkjbnir-Ax-ze on-minerals (Tab-A-Floyd Womens) 27-0.4 mg tabletIndications: vitamin [...] Advance Directives For more information, please contact: [phone] (7:30 AM - 5PM [facility], 7 days a week) * Full Code (Latest Code Status on File) Date Activated Date Inactivated Comments 09/27/2022 2:12 PM Care Teams Can Tender Relationship Specialty Start Date End Date Aneudy Cheung MD [address] [address] PCP - General Internal Medicine 09/25/22
--- OUTSIDE RECORDS SUMMARY | 2024-04-08 23:05 | XMS_ITS | Clinical Summary ---
Author Organization [facility] Address [address] [place] [address] Phone Care Team Providers Care Civil Engineering Professional Name Role Phone Aneudy Cheung MD Primary Care Provider [phone] Allergies Active Allergy Reactions Criticality Noted Date [...] (eye irritation). Indications: eye irritation 03/09/19 Active tqexbnzydege-Pq-hi on-minerals (Tab-A-Floyd Womens) 27-0.4 mg tabletIndications: vitamin [...] age to complete this topic Insurance MEDICARE Advance Directives For more information, please contact: [phone] (7:30 AM - 5PM [facility], 7 days a week) * Full Code (Latest Code Status on File) Date Activated Date Inactivated Comments 09/27/2022 2:12 PM Care Teams Civil Engineering Professional Relationship Specialty Start Date End Date Aneudy Cheung MD [address] [address] PCP - General Internal Medicine 09/25/22
--- OUTSIDE RECORDS SUMMARY | 2024-04-08 23:05 | XMS_ITS | Clinical Summary ---
Author Organization [employer] Wilda mejia Address [address] [facility] [address] [place] [address] Care Team Providers Care Mac Operator Name Role Phone Aneudy Cheung MD Primary Care Provider [phone] Allergies Active Allergy Reactions Criticality Noted Date [...] polyneuropathy, without long-term current use of insulin ([facility]) USE 1 STRIP TO CHECK GLUCOSE DAILY. DX: E11.9 100 Each 8 02/26/20 21 Active mometasone (NASONEX) 50 mcg/actuation [place], Non-Aerosol Administer 2 Sprays in each nostril [...] polyneuropathy, without long-term current use of insulin ([facility]) Inject 1.8 mg by subcutaneous injection daily. 27 mL 3 04/20/19 24 Active Insulin [place], Disposable, (BD Ultra-Fine Micro Pen Needle) 32 [...] polyneuropathy, without long-term current use of insulin ([facility]) TAKE 1 CAPSULE BY MOUTH 3 TIMES DAILY 270 Capsule 3 02/29/20 24 Active Active Problems Patient Care Coordination No te Formatting of this note migh t be different from the original. Clinician Oncology-Dr. Raymond Moore ([place]) Problem Noted Date Diagnosed Date Primary osteoarthritis of right knee 03/17/2019 Acute blood loss anemia 03/17/2019 Dyslipidemia 02/28/2019 Type 2 diabetes mellitus without complication CECILIA (obstructive sleep apnea) 08/26/2016 Morbid obesity due to excess calories 08/26/2016 Encounters Date Type Department Care Team Description 04/05/2024 External Device Data STL ABSTRACTION Provider, Abstract 03/04/2024 Telephone [facility] Internal Medicine - [place] [address] [place] [address] [address] [place] [phone] Aneudy Cheung MD No Show; No Show # 1 02/28/2024 Refill [facility] Internal Medicine - [place] [address] [place] [phone] Aneudy Cheung MD Type 2 diabetes mellitus with diabetic polyneuropathy, without long-term current use of insulin ([facility]) 02/14/2024 [facility] Internal Medicine - [address] [place] [phone] Aneudy Cheung MD from Last 3 Months [...] COVID-19 VACCINE - EMERGENCY USE AUTHORIZATION, MRNA, CTX482H8(PF) 30 MCG/0.3 ML IM SUSP 10/01/2020,09/07/2020 (PREVNAR [...] Description 06/08/2024 1:00 PM CDT Office Visit [facility] Pulmonology and Sleep Med - [address] [place] [phone] Rocco Lemos MD [address] [place] [phone] 08/25/2024 10:00 AM CDT Office Visit [facility] Internal Medicine - [place] [address] [place] [phone] Aneudy Cheung MD [address] [place] [phone] Health Maintenance Due Date Last Done Comments [...] history exists Medical Devices Implanted Type Area Rn Cardiac Device Identifier Shelf Expiration Date Model / Serial / Lot Cable W/Crimp Ss 1.7 X 750mm 298.801.01s - [id number] Implanted:Qty : 1 on 09/23/2022 by Dahlia Durbin DO at [facility] Cable Right: Hip J&J- DEPUY SYNTHES 298.801.01S / / Cement Refobacin R 1x40gm [id number] - [id number] Implanted:Qty : 1 on 03/17/2019 by Sekou Rudd MD at [facility] Cement Right: Knee [employer] 11/06/2020 [id number] / / [id number] Cement Refobacin R 1x40gm [id number] - [id number] Implanted:Qty : 1 on 03/17/2019 by Sekou Rudd MD at [facility] Cement Right: Knee [employer] 11/06/2020 [id number] / / [id number] Stem Ext Nxgn 89g25un 45-8480-880-1 5 - [id number] Implanted:Qty : 1 on 03/17/2019 by Sekou Rudd MD at [facility] Knee Right: Knee [employer] 02/05/2029 [id number] / / [id number] Comp Fem Nxgn Lcck 80-8114-651-9 2 - [id number] Implanted:Qty : 1 on 03/17/2019 by Sekou Rudd MD at [facility] Knee Right: Knee [employer] 05/06/202836-32[address]-433-9 2 / / [id number] Comp Tib Nxgn Stmd 55-3239-151-0 1 - [id number] Implanted:Qty : 1 on 03/17/2019 by Sekou Rudd MD at [facility] Knee Right: Knee [employer] 12/23/202844-2425-112-0 1 / / [id number] Stem Ext Nxgn 90d475zr 80-9560-587-1 4 - [id number] Implanted:Qty : 1 on 03/17/2019 by Sekou Rudd MD at [facility] Knee Right: Knee [employer] 07/07/2027 [id number] / / [id number] Patella Psn Ply 29mm 67-7441-750-2 9 - [id number] Implanted:Qty : 1 on 03/17/2019 by Sekou Rudd MD at [facility] Knee Right: Knee [employer] 12/06/2026 01-0926-734-2 9 / / [id number] Insert Nexgen Lcck 89-0072-921-1 4 - [id number] Implanted:Qty : 1 on 03/17/2019 by Sekou Rudd MD at [facility] Knee Right: Knee [employer] 09/05/2025 [id number] / / [id number] Lens Iol Clareon 21.5 Sy60wf.215 - [id number] Implanted:Qty : 1 on 01/16/2022 by Oswaldo Coates DO at [facility] Lens Right: Eye [facility] [id number] 06/09/2025 SY60WF.215 / [id number] / Lens Iol Clareon 21.5 Sy60wf.215 - [id number] Implanted:Qty : 1 on 01/23/2022 by Oswaldo Coates DO at [facility] Lens Left: Eye [facility] 06/15/2025 SY60WF.215 / [id number] / Nail Tfna 28p039eu 130?? 04.037.044s - [id number] Implanted:Qty : 1 on 09/23/2022 by Dahlia Durbin DO at [facility] Nail Right: Hip J&J- DEPUY SYNTHES 12/07/2031 04.037.044S / / [id number] Blade Helical Tfna 80mm 04.038.380s - [id number] Implanted:Qty : 1 on 09/23/2022 by Dahlia Durbin DO at [facility] Nail Right: Hip J&J- DEPUY SYNTHES 07/06/2030 04.038.380S / / [id number] Plate Condylar 4.5 Va-Lcp 02.124.414 - [id number] Implanted:Qty : 1 on 09/23/2022 by Dahlia Durbin DO at [facility] Plate Right: Hip J&J- DEPUY SYNTHES 02.124.414 / / Low Prof Lckng Screw F/Im Nail Implanted:Qty : 1 on 09/23/2022 by Dahlia Durbin DO at [facility] Right: Hip 10/07/2031 DEPUY SYNTHES-04.04 5.334S / / [id number] 5.0mm Locking Screw.26mm Implanted:Qty : 1 on 09/23/2022 by Dahlia Durbin DO at [facility] Right: Hip SYNTHES-42.23 1.226 / / 5.0mm Locking Screw.26mm Implanted:Qty : 1 on 09/23/2022 by Dahlia Durbin DO at [facility] Right: Hip SYNTHES-42.23 1.226 / / 5.0mm Locking Screw, 28mm Implanted:Qty : 1 on 09/23/2022 by Dahlia Durbin DO at [facility] Right: Hip SYNTHES-42.23 1.228 / / 5.0mm Locking Screw, 18mm Implanted:Qty : 1 on 09/23/2022 by Dahlia Durbin DO at [facility] Right: Hip SYNTHES-42.23 1.018 / / 5.0mm Locking Screw, 28mm Implanted:Qty : 1 on 09/23/2022 by Dahlia Durbin DO at [facility] Right: Hip SYNTHES-42.23 1.228 / / 5.0mm Locking Screw..16mm Implanted:Qty : 1 on 09/23/2022 by Dahlia Durbin DO at [facility] Right: Hip SYNTHES-42.23 1.016 / / 5.0mm Locking Screw..16mm Implanted:Qty : 1 on 09/23/2022 by Dahlia Durbin DO at [facility] Right: Hip SYNTHES-42.23 1.016 / / 5.0mm Locking Screw, 18mm Implanted:Qty : 1 on 09/23/2022 by Dahlia Durbin DO at [facility] Right: Hip SYNTHES-42.23 1.018 / / 5.0mm Locking Screw, 28mm Implanted:Qty : 1 on 09/23/2022 by Dahlia Durbin DO at [facility] Right: Hip SYNTHES-42.23 1.228 / / 34 Mm Variable Angle Locking Screw Implanted:Qty : 1 on 09/23/2022 by Dahlia Durbin DO at [facility] Right: Hip SYNTHES-42.23 1.234 / / 32 Mm- 5.0 Variable Angle Locking Implanted:Qty : 1 on 09/23/2022 by Dahlia Durbin DO at [facility] Right: Hip SYNTHES-42.23 1.232 / / 3.5 Va Locking Attachment Plate Implanted:Qty : 1 on 09/23/2022 by Dahlia Durbin DO at [facility] Right: Hip SYNTHES-02.22 1.174 / / Procedures Procedure Name Priority Date/Time Associated Diagnosis Comments LIPID PANEL Routine 08/24/2023 12:00 PM CDT Type 2 diabetes mellitus with diabetic polyneuropathy, without long-term current use of insulin ([facility]) Mixed hyperlipidemia HEMOGLOBIN A1C Routine 08/24/2023 12:00 PM CDT Type 2 diabetes mellitus with diabetic polyneuropathy, without long-term current use of insulin ([facility]) Mixed hyperlipidemia MICROALBUMIN/CREATI NINE RATIO, RANDOM UR Routine 08/24/2023 12:00 AM CDT Type 2 diabetes mellitus with diabetic polyneuropathy, without long-term current use of insulin ([facility]) COLON CANCER SCREEN, STOOL DNA Routine 06/03/2021 2:30 PM CDT Special screening for malignant neoplasms, colon XR DEXA BONE DENSITY AXIAL 1 OR MORE SITES Routine 07/15/2017 Osteopenia of multiple sites from Last 3 Months or Most Recently Relevant to Health Maintenance Results * (ABNORMAL) HEMOGLOBIN A1C (08/24/2023 12:00 PM CDT) HEMOGLOBIN A1C 6.5(H) <5.7 % of total Hgb [facility] Comment: For someone without known diabetes, [...] ?? ESTIMATED AVERAGE GLUCOSE (MG/DL) 140 mg/dL [facility] ESTIMATED AVERAGE GLUCOSE (MMOL/L) 7.7 mmol/L [facility] Comment: ? This test was performed on the Alessio stanley c503 platform. Effective 05/25/23, a change in test platforms from the Dunlap [employer]plays to the Alessio stanley c503 may have shifted HbA1c results compared to historical results. Based on laboratory validation testing conducted at [facility], the Alessio platform relative to the Dunlap [...] platforms is not recommended. Test Performed at: [facility] [place] [address] [address] [place] ??[phone] [facility] Richardson Blood 08/24/2023 12:0 0 PM CDT 08/24/2023 12:00 PM CDT us Aneudy Cheung MD CHEMISTRY ORDERABLES Final Res ult [facility] [phone] [facility] [place] [address] [address] [place] [phone] * (ABNORMAL) LIPID PANEL (08/24/2023 12:00 PM CDT) CHOLESTEROL 240(H) <200 mg/dL [facility] HDL 50 > OR = 50 mg/dL [facility] TRIGLYCERIDE 112 <150 mg/dL [facility] LDL CALCULATED 166(H) mg/dL (calc) [facility] Comment: Reference range: <100 Desirable range <100 mg/dL for primary prevention; ?? <70 mg/dL for patients with CHD or diabetic patients with > or = 2 CHD risk factors. LDL-C is now calculated using the Viktoria calculation, which is a validated novel method providing better accuracy than the Friedewald equation in the estimation of LDL-C. Mike NGUYEN et al. JEANNIE. 2013;310(19): 5039-3153 (http://education.Appia/faq/TRC408) CHOL/HDL RATIO 4.8 <5.0 (calc) [facility] NON-HDL CHOLESTEROL 190(H) <130 mg/dL (calc) [facility] Comment: For patients with diabetes plus 1 major ASCVD risk factor, treating to a non-HDL-C goal of <100 mg/dL (LDL-C of <70 mg/dL) is considered a therapeutic option. Test Performed at: [facility] [place] [address] [place] ??[address] [facility] Richardson Blood 08/24/2023 12:0 0 PM CDT 08/24/2023 12:00 PM CDT us Aneudy Cheung MD CHEMISTRY ORDERABLES Final Res ult [facility] [phone] [place] [address] [place] [address] * MICROALBUMIN/CREATININE RATIO, RANDOM UR (08/24/2023 12:00 AM CDT) Creatinine, Urine 140 20 - 275 mg/dL [facility] MICROALBUMIN, URINE 0.8 See Note: mg/dL [facility] Comment: Reference Range: Reference Range [...] within a diagnostic category. Test Performed at: [facility] [address] [place], [place] ??[address] Grupo Richardson MD Urine URINE SPECIMEN OBTAINED BY CLEAN CATCH PROCEDURE / Unknown 08/24/2023 08/25/2023 6:40 AM CDT Aneudy Cheung MD URINE ORDERABLES Final Result [facility] [phone] [facility] [address] [place] [address] * COLON CANCER SCREEN, STOOL DNA (06/03/2021 2:30 PM CDT) COLOGUARD RESULT Negative Negative [facility] Comment: NEGATIVE TEST RESULT. A negative [...] (Julianne Middleton al, N Engl J Med 2014;370(14):2018-8217) The normal value (reference range) for this assay is negative. COLOGUARD RE-SCREENING RECOMMENDATION: Periodic colorectal cancer screening is an important part of preventive healthcare for asymptomatic individuals at average risk for colorectal cancer. ??Following a negative Cologuard result, the [place] Cancer Society and U.S. Multi-Society Task Force screening guidelines recommend a Cologuard re-screening interval of 3 years. References: [place] Cancer Society Guideline for Colorectal Cancer Screening: https://www.cancer.org/cancer/zlfuw-jcafjy-fckibv/nrwwweyew-tdrwvvsjp-uxrnups/ac s-rec ommendations.html.; Cody DK, Gerardo CR, Genny JamesK, Colorectal Cancer Screening: Recommendations for Physicians and Patients from the U.S. Multi-Society Task Force on Colorectal Cancer Screening , Am J Gastroenterology 2017; 112:4952-7730. TEST DESCRIPTION: Composite algorithmic analysis of stool [...] Bailon et al, N Engl J Med 2014;370(14):6920-6035.) Cologuard may produce a false negative or false positive result (no colorectal cancer or precancerous polyp present at colonoscopy follow up). A negative Cologuard test result does not guarantee the absence of CRC or advanced adenoma (pre-cancer). The current Cologuard screening interval is every 3 years. ([place] Cancer Society and U.S. Multi-Society Task Force). Cologuard performance data in a 10,000 patient pivotal study using colonoscopy as the reference method can be accessed at the following location: www.Vint.N4MD/results. Additional description of the Cologuard test process, warnings and precautions can be found at www.Affomix Corporationrd.com. Stool STOOL SPECIMEN / Unknown 06/03/2021 2:30 PM CDT 06/04/2021 9:14 PM CDT Aneudy Cheung MD BODY FLUIDS AND STOOLS Final R esult [facility] LINA BOJORQUEZ # [id number] [address] , [address] [place] [address] * (ABNORMAL) XR DEXA BONE DENSITY AXIAL 1 OR MORE SITES (07/15/2017) Anatomical Region Laterality Modality Other Aneudy Cheung MD DIAGNOSTIC IMAGING ORDERABLES Final Result from Last 3 Months or Most Recently Relevant to Health Maintenance Insurance [address] [place] [id number] MEDICARE PART A AND B [address] [address] [employer] Medicare Part D Advance Directives For more information, please contact: [phone] * Full Code (Latest Code Status on [...] 11:27 AM 01/23/2022 11:39 AM Care Teams Mac Operator Relationship Specialty Start Date End Date Aneudy Cheung MD [address] [place] [address] [place] [address] PCP - General Internal Medicine 09/03/15
[2024-04-08 23:06] VITALS: PULSE 63; RESP 14; O2SAT 100
--- NOTE | 2024-04-08 23:46 | ED.GENADULT ---
HPI - General Adult General Chief complaint: Fall Stated complaint: Fall Time Seen by Provider: 04/08/24 22:41 History of Present Illness HPI narrative: Patient is a 73-year-old female who presents ER after having a fall in her kitchen. Her dog got tangled up between her legs and she fell backwards striking her head. No LOC. She also struck her right hip. She did not get up and walk due to concerns that there could be a fracture. No numbness or tingling. She is able to perform range of motion. She does take Eliquis. Related Data Allergies Allergy/AdvReac Type Severity Reaction Status Date / Time Penicillins Allergy Unknown Verified 10/23/14 10:14 NKFA Allergy Unknown Uncoded 08/30/02 12:02 Review of Systems Review of Systems: All systems reviewed & are unremarkable except as noted in HPI and below Constitutional: Constitutional: Reports no additional constitutional complaints Musculoskeletal: Musculoskeletal: Reports no additional musculoskeletal complaints Neurologic: Reports system reviewed and no additional complaints, except as documented PMFSH Past Medical History Medical History (Updated 04/08/24 @ 23:56 by Atul Hoffman MD) DVT (deep venous thrombosis) Diabetes Social History Social History Smoking status: Never smoker Smoking end date: 03/09/94 Alcohol intake: never Exam Narrative: GENERAL: Well-appearing, well-nourished, and in no acute distress. HEAD: Normocephalic, atraumatic. EYES: PERRL and EOMI. ENT: Mucous membranes moist. CHEST: Clear to auscultation. No respiratory distress. HEART: Regular rate and rhythm. Normal peripheral pulses. EXTREMITIES: Normal range of motion. No edema. SKIN: Warm, dry, no rash. NEURO: Alert and oriented x3. PSYCH: Normal mood and affect. Course Course Emergency Course: No bleeding or fracture. Ambulatory with a steady gait. Appropriate for discharge. Vital Signs Vital signs: Vital Signs Temperature 97.9 F 04/08/24 22:19 Pulse Rate 77 04/08/24 22:19 Respiratory Rate 18 04/08/24 22:19 Blood Pressure 142/63 H 04/08/24 22:19 Pulse Oximetry 100 04/08/24 22:19 Oxygen Delivery Room Air 04/08/24 22:19 Temperature 97.9 F 04/08/24 22:19 Pulse Rate 63 04/08/24 23:06 Respiratory Rate 14 04/08/24 23:06 Blood Pressure 142/63 H 04/08/24 22:19 Pulse Oximetry 100 04/08/24 23:06 Oxygen Delivery Room Air 04/08/24 22:19 Medical Decision Making Vital Signs Vital Signs: Vital Signs Temperature 97.9 F 04/08/24 22:19 Pulse Rate 77 04/08/24 22:19 Respiratory Rate 18 04/08/24 22:19 Blood Pressure 142/63 H 04/08/24 22:19 Pulse Oximetry 100 04/08/24 22:19 Oxygen Delivery Room Air 04/08/24 22:19 Temperature 97.9 F 04/08/24 22:19 Pulse Rate 63 04/08/24 23:06 Respiratory Rate 14 04/08/24 23:06 Blood Pressure 142/63 H 04/08/24 22:19 Pulse Oximetry 100 04/08/24 23:06 Oxygen Delivery Room Air 04/08/24 22:19 Imaging Data Radiologist's impression: ITS Impressions Hip X-Ray 04/08/24 22:52 IMPRESSION: 1. Mild right hip osteoarthritis. Head CT 04/08/24 23:17 IMPRESSION: 1. Normal aging brain. Discharge Plan Discharge Clinical Impression: Accident due to mechanical fall without injury Patient Disposition: Home, Self-Care Condition: Stable Instructions: Fall Prevention for Older Adults (ED) Patient Language: Luxembourgish Follow-up/Referrals: UNKNOWN,DOCTOR [Primary Care Provider] - 1 Week
[2024-04-09 00:27] VITALS: BP 144/66; PULSE 66; RESP 16; O2SAT 99
== END 2024-04-09 00:29 | disposition home or self-care (01) ==
PROVIDERS: Emergency Provider Emergency Medicine
DX: S09.90XA Unspecified injury of head, initial encounter (principal); S79.911A Unspecified injury of right hip, initial encounter; E11.9 Type 2 diabetes mellitus without complications; Z86.718 Personal history of other venous thrombosis and embolism; Z87.891 Personal history of nicotine dependence; M16.11 Unilateral primary osteoarthritis, right hip; W01.0XXA Fall on same level from slipping, tripping and stumbling without subsequent striking against object, initial encounter
CPT/HCPCS: 70450; 73502; 99284

== ENCOUNTER 2024-05-05 10:55 | Outpatient (CLI) | payer MEDICARE, BC, SELFPAY ==
[2024-05-05 11:41] LABS: Alanine Aminotransferase 15 U/L (6-35); Albumin Level 4.1 g/dL (3.5-5.1); Alkaline Phosphatase 70 U/L (38-126); Anion Gap 9 mmol/L (4-12); Aspartate Amino Transferase 21 U/L (14-36); Bilirubin,Total 0.8 mg/dL (0.2-1.3); Blood Urea Nitrogen 18 mg/dL (7-17); Calcium 9.6 mg/dL (8.4-10.2); Carbon Dioxide 28 mmol/L (22-30); Chloride 107 mmol/L (98-107); Cholesterol 245 mg/dL (0-200); Estimated Glomerular Filt Rate > 60; Glucose 92 mg/dL (65-110); HDL Direct 58 mg/dL; Potassium 4.2 mmol/L (3.4-5.0); Sodium 144 mmol/L (137-145); Triglycerides 104 mg/dL (<150)
[2024-05-05 11:52] LABS: LDL Cholesterol Direct 131 mg/dL
[2024-05-05 12:00] LABS: Free T4 Free Thyroxine 1.28 ng/dL (0.78-2.19)
[2024-05-06 03:52] LABS: Hemoglobin A1C 5.6 % (<5.7)
== END 2024-05-05 10:56 | disposition home or self-care (01) ==
PROVIDERS: PCP Nurse Practitioner Family; Visit Provider Nurse Practitioner Family
DX: E03.9 Hypothyroidism, unspecified (principal); E11.9 Type 2 diabetes mellitus without complications
CPT/HCPCS: 36415; 80053; 80061; 83036; 84439; 84443

== ENCOUNTER 2024-05-16 10:15 | Outpatient (CLI) | payer MEDICARE, BC, SELFPAY ==
--- NOTE | ~2024-05-16 | US_ITS ---
EXAMINATION: US venous doppler [facility] DATE: 05/16/2024 11:00 INDICATION: History of left lower extremity deep venous TECHNIQUE: Grayscale ultrasound images without and with compression and Doppler ultrasound images of the bilateral lower extremity veins were obtained. COMPARISON: 08/23/2012. FINDINGS: The visualized portions of right common femoral vein, profunda (deep) femoral vein, femoral vein, pop liteal vein, peroneal veins, posterior tibial veins, and greater saphenous vein outflow are patent. The visualized portions of left common femoral vein, profunda femoral vein, femoral vein, popliteal v ein, peroneal veins, posterior tibial veins, and greater saphenous vein outflow are patent. IMPRESSION: 1. No deep venous thrombosis. Reviewed, dictated and finalized at location A.
--- OUTSIDE RECORDS SUMMARY | 2024-05-16 12:01 | XMS_ITS | Clinical Summary ---
Author Organization [facility] Address [address] [place] [address] Care Team Providers Care Knotting Machine Operator Portable Name Role Phone Aneudy Cheung MD Primary Care Provider [phone] Allergies Active Allergy Reactions Criticality Noted Date [...] the adrenal glands produce less hormones called [place]'s disease Active furosemide (LASIX) 20 mg tabletIndications: Edema Take 20 mg by mouth daily. Indications: visible water retention Active gabapentin (NEURONTIN) 300 mg capsuleIndications :Neuropathic Pain Take 300 mg by mouth 3 (three) times a day as needed (pain). 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 Gender Identity Not on file Sexual Orientation [...] 79 06/20/2022 11:24 AM CDT Temperature 36.4 C (97.5 F) 06/20/2022 11:19 AM CDT Respiratory Rate 20 06/20/2022 11:19 AM CDT Oxygen Saturation 96% 06/20/2022 11:24 AM CDT Inhaled Oxygen Concentration - - Weight 91 kg (200 lb 9.6 oz) 06/20/2022 11:19 AM CDT Height 153.2 cm (5' 0.32 ) 06/21/2021 1:40 PM CD T Body Mass Index 38.77 06/21/2021 1:40 PM CDT Plan of Treatment Health Maintenance Due Date Last Done Comments Albumin Creatinine Ratio, Urine 1952 Colon Cancer Screening-Colonoscopy 1950 Depression Screening 1952 Fall Risk Assessment 1950 Dilated Eye Exam 1952 Foot Exam [...] 2023 , 12/21/2020, 10/26/2019, Additional history exists Hemoglobin A1C 02/23/2024 08/24/2023, 02/06, 09/12/2022, Additional history exists DTaP/Tdap/Td Vaccine (3 - Td or Tdap) 07/18/2024 07/18/2014, 03/20/2014 Hepatitis C Screening Completed 07/15/2013, 014 Hepatitis B Screening Completed 07/18/2014, 015 Zoster Vaccine Completed 09/07/2019, 05/24/2019 Pneumococcal vaccine [...] MAGDALENO Comment: Interpretive Data Reference Interval Normal >/= 90 mL/min/1.73m2 Mildly decreased* 60 - 89 mL/min/1.73m2 Mildly to moderately decreased 45 - 59 mL/min/1.73m2 Moderately to severely decreased 30 - 44 mL/min/1.73m2 Severely decreased 15 - 29 mL/min/1.73m2 Kidney Failure < 15 mL/min/1.73m2 *Relative to young adult level Estimated glomerular [...] was last reviewed 2021. Testing performed by: [facility], [address] [place] [id number] Blood 06/20/2022 11:0 1 AM CDT 06/20/2022 11:02 AM CDT us Brunilda Abreu NP LAB BLOOD ORDERABLES Fin al Result SANJUANAMIGUELINA RASTA [facility] Department [place] [address] * Screening Mammogram 2D Bilateral (07/15/2017 11:09 AM CDT) Anatomical Region Laterality Modality Breast Bilateral Mammography Narrative 07/20/2017 8:39 AM CDT Screening Mammogram 2D Bilateral: 07/15/17 Clinical: Screening breast examination. Prior Study Comparisons: 07/19/2012 Findings: Bilateral No significant masses, malignant type calcifications, skin thickening, nipple retraction, or significant lymphadenopathy is noted in either breast. The CAD review showed no significant findings. The breasts have scattered areas of fibroglandular density. Impression: BI-RADS ATLAS category (overall): 1 Negative There is no mammographic evidence of malignancy. Routine Screening Mammogram in 1 Yr is recommended for bilateral Overall Assessment: 1 - Negative Aneudy Cheung MD IM MAMMO PROCEDURES Final [...] MD Narrative 07/15/2017 10:43 AM CDT EXAM: Bone mineral density [facility]. HISTORY: 66-year-old postmenopausal female taking calcium and vitamin D. Leukemia. DXA BMD was done at [facility] on a [employer] SL. Precision testing at this site [...] excluded due to fusion hardware. COMPARISON: None. Procedure Note Jay Lei MD - 07/15/2017 EXAM: Bone mineral density [facility]. HISTORY: 66-year-old postmenopausal female taking calcium and vitamin D. Leukemia. DXA BMD was done at [facility] on a [employer] Discovery SL. Precision testing at this site [...] machine. Electronically signed by: JAY LEI MD us Aneudy Cheung MD IMG DXA PROCEDURES Final Re sult * (ABNORMAL) Serum lipid panel (10/27/2014 11:45 AM CDT) Cholesterol 293(H) 0 - 200 mg/dl HISTORICAL RESULTS Comment: Interpretive Data Desirable: <200 mg/dL Borderline high: 200-239 mg/dL High: >240 mg/dL Literature Reference: National Cholesterol Education Program (NCEP) Expert Panel on Detection, Evaluation, and Treatment of High Blood Cholesterol in Adults (Adult Treatment Panel III). Circulation 2004; 110:227. Current interpretive data was last revised on 2005. Triglycerides 181(H) 0 - 150 mg/dl HISTORICAL RESULTS Comment: Interpretive Data Desirable: < 150 mg/dL Borderline High: 150 - 199 mg/dL High: > 200 mg/dL Literature Reference: See Cholesterol Current interpretive data was last revised on 06. HDL 59 40 - 199 mg/dl HISTORICAL RESULTS Comment: Interpretive Data Less than 40 mg/dL - low; A major risk factor for heart disease. Greater than or equal to 60 mg/dL - High; considered protective of heart disease. Literature Reference: See Cholesterol Current interpretive data was last revised on 2007. LDL 197(H) 0 - 129 mg/dl HISTORICAL RESULTS Comment: Interpretive Data Optimal: < 100 mg/dL Near Optimal: 100 - 129 mg/dL Borderline High: 130 - 159 mg/dL High: > 160 mg/dL Literature Reference: See Cholesterol Current interpretive data was last revised on 06. Non-HDL cholesterol, calculated 234 mg/dl HISTORICAL RESULTS Comment: Interpretive Data When triglycerides are >200 mg/dL, non-HDL C is a secondary target of therapy, with a goal 30 mg/dL higher than the identified LDL-C goal. Reference: See Cholesterol Reference. Current interpretive data was last [...] to request sample to be sent to [facility] for Hepatitis C Virus (HCV) RNA Detection and Quantitation by Real-Time Reverse Residential Monitor-PCR (RT-PCR). Current interpretive data was last revised [...] Recently Relevant to Health Maintenance Insurance MEDICARE ANTHEM ACCESS CHOICE MEDICARE ANTHEM ACCESS CHOICE MEDICARE ANTHEM ACCESS CHOICE MEDICARE BLUE ACC CHOICE OOS Care Teams Knotting Machine Operator Portable Relationship Specialty Start Date End Date Aneudy Cheung MD [address] [place] [address] PCP - General 05/19/17
--- OUTSIDE RECORDS SUMMARY | 2024-05-16 12:01 | XMS_ITS | Referral Summary ---
Author Organization [facility] Address [address] [place] [address] Care Team Providers Care Formal Service Waiter Name Role Phone Aneudy Cheung MD Primary [...] the adrenal glands produce less hormones called Leon's disease Active furosemide (LASIX) 20 mg tabletIndications: Edema Take 20 mg by mouth daily. Indications: visible water retention Active gabapentin (NEURONTIN) 300 mg capsuleIndications :Neuropathic Pain Take 300 mg by mouth 3 (three) times a day as needed (pain). Indications: neuropathic pain Active levothyroxine (SYNTHROID) 88 mcg tabletIndications: hypothyroidism Take 88 mcg by mouth rehab physician before breakfast. 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 Testing performed by: [facility], [address] [place] [id number] Blood 06/20/2022 11:0 1 AM CDT 06/20/2022 11:02 AM CDT us Brunilda Abreu [employer]LET [employer] LAB BLOOD ORDERABLES Fin al Result MONICA MAGDALENO [facility] Department [place] [address] * Screening Mammogram 2D Bilateral (07/15/2017 11:09 [...] 10:43 AM CDT EXAM: Bone mineral density [facility]. HISTORY: 66-year-old postmenopausal female taking calcium and vitamin D. Leukemia. DXA BMD was done at [facility] on a [employer] Discovery SL. Precision testing at this site [...] fusion hardware. COMPARISON: None. Procedure Note Jay Lie MD - 07/15/2017 EXAM: Bone mineral density [facility]. HISTORY: 66-year-old postmenopausal female taking calcium and vitamin D. Leukemia. DXA BMD was done at [facility] on a [employer] SL. Precision testing at this site has [...] to request sample to be sent to [facility] for Hepatitis C Virus (HCV) RNA Detection and Quantitation by Real-Time Reverse General Service Officer-PCR (RT-PCR). Current interpretive data was last revised [...] MEDICARE BLUE ACC CHOICE OOS Care Teams Formal Service Waiter Relationship Specialty Start Date End Date Aneudy Cheung MD [address] [place] [id number] PCP - General 05/19/17
--- OUTSIDE RECORDS SUMMARY | 2024-05-16 12:01 | XMS_ITS | Clinical Summary ---
Author Organization 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 Care Teams Counseling Services Director Relationship Specialty Start Date End Date Non-Staff, Physician NO ADDRESS ON FILE PCP - General 09/19/10
--- OUTSIDE RECORDS SUMMARY | 2024-05-16 12:01 | XMS_ITS | Clinical Summary ---
Author Organization [facility] Address [address] [place] [address] Phone Care Team Providers Care Materials Scheduler Name Role Phone Aneudy Cheung MD Primary Care Provider [phone] Allergies Active Allergy Reactions Criticality Noted Date [...] (eye irritation). Indications: eye irritation 03/09/19 Active nicopqekidaw-Jt-ix on-minerals (Tab-A-Floyd Womens) 27-0.4 mg tabletIndications: vitamin [...] 54 11/06/2022 8:48 AM CDT Temperature 36.2 C (97.2 F) 11/06/2022 8:48 AM CDT Respiratory Rate 16 11/06/2022 8:48 AM CDT [...] Advance Directives For more information, please contact: [phone] (7:30 AM - 5PM [facility], 7 days a week) * Full Code (Latest Code Status on File) Date Activated Date Inactivated Comments 09/27/2022 2:12 PM Care Teams Materials Scheduler Relationship Specialty Start Date End Date Aneudy Cheung MD [address] [phone] PCP - General Internal Medicine 09/25/22
--- OUTSIDE RECORDS SUMMARY | 2024-05-16 12:01 | XMS_ITS | Clinical Summary ---
Author Organization [employer] Wilda mejia Address [address] [address] Care Team Providers Care Triple Drum Operator Name Role Phone Aneudy Cheung MD Primary Care Provider [phone] Allergies Active Allergy Reactions Criticality Noted Date [...] type 2 testing BID. 100 Each 2 019 Active Blood-Glucose Meter (Blood Glucose Monitoring) Kit Use to check glucose BID E11.40 ACCUCHEK NICOLASA 1 Each 020 Active blood sugar diagnostic (Accu-Chek Nicolasa Plus test strp) StripIndications: Type 2 diabetes mellitus with diabetic polyneuropathy, without long-term current use of insulin ([facility]) USE 1 STRIP TO CHECK GLUCOSE DAILY. DX: E11.9 100 Each 8 021 Active mometasone (NASONEX) 50 mcg/actuation [place], Non-Aerosol Administer 2 Sprays in each nostril daily. 17 Gram 022 Active sodium chloride (MARIS-128) 5 % ointment Administer 0.25 Inches in both eyes daily at bedtime. 3.5 Gram 5 023 Active sodium chloride (MARIS 128) 2 % solution One drop every 4 hours right eye One drop bid left eye 15 mL 5 023 Active eszopiclone (LUNESTA) 3 mg TabletIndications :Sleep disturbance Take 1 Tablet (3 mg) by mouth nightly as needed for Insomnia. 30 Tablet 1 023 Active acetaminophen (TYLENOL) 500 mg tablet Take 2 Tablets (1,000 mg) by mouth every 8 hours as needed for Pain. 60 Tablet 023 Active furosemide (LASIX) 40 mg tabletIndications :Edema of left ankle Take 1 Tablet (40 mg) by mouth daily. 30 Tablet 1 023 Active potassium chloride (K-TAB) 20 mEq Extended Release tabletIndications :Edema of left ankle Take 1 Tablet (20 mEq) by mouth daily with breakfast. Take on days that you take Lasix 30 Tablet 1 023 Active pravastatin (PRAVACHOL) 80 mg tablet TAKE 1 TABLET LATE IN THE DAY 100 Tablet 3 023 Active Cetirizine (ZyrTEC) 10 mg CapsuleIndication s:Acute recurrent maxillary sinusitis Take 10 mg by mouth daily. 90 Capsule 3 023 Active liraglutide (Victoza 3-Rick) 0.6 mg/0.1 mL (18 mg/3 mL)Indications:Ty pe 2 diabetes mellitus with diabetic polyneuropathy, without long-term current use of insulin ([facility]) Inject 1.8 mg by subcutaneous injection daily. 27 mL 3 024 Active Insulin [place], Disposable, (BD Ultra-Fine Micro Pen Needle) 32 gauge x 1/4 Needle USE DIRECTED WITH VICTOZA 100 Each 3 024 Active metFORMIN (GLUCOPHAGE) 1,000 mg tabletIndications :Type 2 diabetes mellitus with diabetic polyneuropathy, without long-term current use of insulin (CMS/HCC) TAKE 1 TABLET BY MOUTH TWICE DAILY WITH MEALS 180 Tablet 3 024 Active tiZANidine (ZANAFLEX) 4 mg TabletIndications :Myalgia, other site Take 1 Tablet (4 mg) by mouth 2 times daily as needed for Spasm. 180 Tablet 3 024 Active traMADoL (ULTRAM) 50 mg tabletIndications :Bilateral leg weakness TAKE ONE TABLET BY MOUTH EVERY TWELVE HOURS NEEDED FOR PAIN 60 Tablet 1 024 Active apixaban (Eliquis) 5 mg tabletIndications :Acute deep vein thrombosis (DVT) of popliteal vein of left lower extremity (CMS/HCC) TAKE 1 TABLET BY MOUTH TWICE DAILY 200 Tablet 3 024 Active empagliflozin (JARDIANCE) 25 mg tablet Take 1 Tablet (25 mg) by mouth daily in the morning. 100 Tablet 3 024 Active fludrocortisone (FLORINEF) 0.1 mg tablet TAKE 1 TABLET BY MOUTH DAILY 90 Tablet 3 024 Active gabapentin (NEURONTIN) 300 mg capsuleIndication s:Type 2 diabetes mellitus with diabetic polyneuropathy, without long-term current use of insulin (CMS/HCC) TAKE 1 CAPSULE BY MOUTH 3 TIMES DAILY 270 Capsule 3 024 Active levothyroxine 88 mcg tabletIndications :Acquired hypothyroidism TAKE 1 TABLET BY MOUTH DAILY IN THE MORNING 90 Tablet 025 Active rOPINIRole (REQUIP) 1 mg tabletIndications :Restless leg syndrome TAKE 1 TABLET BY MOUTH DAILY 90 Tablet 025 Active rOPINIRole (REQUIP) 1 mg tabletIndications :Restless leg syndrome take 1 tablet daily 90 Tablet 3 024 2024 Discontinued levothyroxine 88 mcg tabletIndications :Acquired hypothyroidism TAKE 1 TABLET BY MOUTH DAILY IN THE MORNING 90 Tablet 3 024 2024 Discontinued Active Problems Patient Care Coordination No te Formatting of this note migh t be different from the original. 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 ([place]) Problem Noted Date Diagnosed Date Primary osteoarthritis of right knee 03/17/2019 Acute blood loss anemia 03/17/2019 Dyslipidemia 02/28/2019 Type 2 diabetes mellitus without complication CECILIA (obstructive sleep apnea) 08/26/2016 Morbid obesity due to excess calories 08/26/2016 Encounters Date Type Department Care Team Description 05/11/2024 [facility] Internal Medicine - [address] [place] [address] Aneudy Cheung MD Acquired hypothyroidism; Restless leg syndrome 04/27/2024 External Device Data STL ABSTRACTION Provider, Abstract 04/12/2024 External Device Data STL ABSTRACTION Provider, Abstract 04/05/2024 External Device Data STL ABSTRACTION Provider, Abstract 03/04/2024 Telephone [facility] [address] [place] [address] Aneudy Cheung MD No Show; No Show # 1 02/28/2024 Refill [facility] [address] [facility] [address] [place] [address] Aneudy Cheung MD Type 2 diabetes mellitus with diabetic polyneuropathy, without long-term current use of insulin ([facility]) from Last 3 Months Immunizations Immunization Administration [...] COVID-19 VACCINE - EMERGENCY USE AUTHORIZATION, MRNA, ACG051H3(PF) 30 MCG/0.3 ML IM SUSP 10/01/2020,09/07/2020 (PREVNAR [...] 90 08/24/2023 11:26 AM CDT Temperature 36.8 C (98.2 F) 08/24/2023 11:26 AM CDT Respiratory Rate 12 06/10/2023 12:56 PM CDT [...] Description 06/08/2024 1:00 PM CDT Office Visit [facility] Pulmonology and Sleep Med - [address] [place] [phone] Rocco Lemos MD [address] [place] [phone] 08/25/2024 10:00 AM CDT Office Visit [facility] Internal Medicine - [place] [address] [place] [address] [address] [place] [phone] Aneudy Cheung MD [address] [facility] [address] [place] [address] Health Maintenance Due Date Last Done Comments [...] DNA Q 3 YEARS (AUTO ORDER) 06/03/2024 2, 06/03/2021 DIABETES ANNUAL FOOT EXAM 08/23/20242023, 06/06/2022, 06/06/2022, Additional history exists DIABETES MICROALBUMIN ANNUAL SCREEN 08/23/2024 08/24/2023, 06/06/2022, 06/01/2020, Additional history exists DIABETES: A1C (Auto Order) 08/23/202408/23, 02/20/2023, 09/12/2022, Additional history exists LDL CHOLESTEROL ANNUAL 08/23/2024 4, 02/20/2023, 06/06/2022, Additional history exists Traditional Medicare (ACO) A nnual Wellness Visit 08/24/2024 08/24/2023, 12/30/2022, 12/24/2021, Additional history exists Colorectal Cancer Screening (AUTO ORDER) 06/03/2026 FLEX SIG/CT COLONOGRAPHY Q 5 YEARS (AUTO ORDER) 06/03/2026 06/03/2021, 06/03/2021 DTAP/TDAP/TD VACCINES Discontinued 07/18/2014, 015 OSTEOPOROSIS SCREENING Completed 8, 07/15/2017, 07/15/2017 ZOSTER VACCINE Completed 09/06/2019, 05/20/2019 COVID-19 Vaccine Discontinued 10/01/2020, 09/07/2020 PNEUMOCOCCAL VACCINE 50+ YEARS Completed 1 , 10/26/2019, 12/05/2014, Additional history exists Medical Devices Implanted Type Area Cartridge Maker Device Identifier Shelf Expiration Date Model / Serial / Lot Cable W/Crimp Ss 1.7 X 750mm 298.801.01s - [id number] Implanted:Qty : 1 on 09/23/2022 by Dahlia Durbin DO at [facility] Cable Right: Hip J&J- DEPUY SYNTHES 298.801.01S / / Cement Refobacin R 1x40gm [id number] - [id number] Implanted:Qty : 1 on 03/17/2019 by Sekou Rudd MD at [facility] Cement Right: Knee [employer] 11/06/2020 [id number] / / [id number] Cement Refobacin R 1x40gm [id number] - [id number] Implanted:Qty : 1 on 03/17/2019 by Sekou Rudd MD at [facility] Cement Right: Knee [employer] 11/06/2020 [id number] / / [id number] Stem Ext Nxgn 82p55le 79-7373-118-1 5 - [id number] Implanted:Qty : 1 on 03/17/2019 by Sekou Rudd MD at [facility] Knee Right: Knee [employer] 02/05/2029 [id number] / / [id number] Comp Fem Nxgn Lcck 40-1433-751-9 2 - [id number] Implanted:Qty : 1 on 03/17/2019 by Sekou Rudd MD at [facility] Knee Right: Knee [employer] 05/06/202817-6279-430-9 2 / / [id number] Comp Tib Nxgn Stmd 59-0037-771-0 1 - [id number] Implanted:Qty : 1 on 03/17/2019 by Sekou Rudd MD at [facility] Knee Right: Knee [employer] 12/23/2028 47-7774-009-0 1 / / [id number] Stem Ext Nxgn 15v927cn 19-4243-038-1 4 - [id number] Implanted:Qty : 1 on 03/17/2019 by Sekou Rudd MD at [facility] Knee Right: Knee [employer] 07/07/2027 [id number] / / [id number] Patella Psn Ply 29mm 87-0682-606-2 9 - [id number] Implanted:Qty : 1 on 03/17/2019 by Sekou Rudd MD at [facility] Knee Right: Knee [employer] 12/06/2026 72-9382-820-2 9 / / [id number] Insert Nexgen Lcck 09-1596-626-1 4 - [id number] Implanted:Qty : 1 on 03/17/2019 by Sekou Rudd MD at [facility] Knee Right: Knee [employer] 09/05/2025 [id number] / / [id number] Lens Iol [place] 21.5 Sy60wf.215 - [id number] Implanted:Qty : 1 on 01/16/2022 by Oswaldo Coates DO at [facility] Lens Right: Eye [employer] [id number] 06/09/2025 SY60WF.215 / [id number] / Lens Iol [place] 21.5 Sy60wf.215 - [id number] Implanted:Qty : 1 on 01/23/2022 by Oswaldo Coates DO at [facility] Lens Left: Eye [employer] 06/15/2025 SY60WF.215 / [id number] / Nail Tfna [id number] 130 04.037.044s - [id number] Implanted:Qty : 1 on 09/23/2022 by Dahlia Durbin DO at [facility] Nail Right: Hip J&J- DEPUY SYNTHES 12/07/2031 04.037.044S / / [id number] Blade Helical Tfna 80mm 04.038.380s - [id number] Implanted:Qty : 1 on 09/23/2022 by Dahlia Durbin DO at [facility] Nail Right: Hip J&J- DEPUY SYNTHES 07/06/2030 04.038.380S / / [id number] Plate Condylar 4.5 Va-Lcp .414 - [id number] Implanted:Qty : 1 on 09/23/2022 by Dahlia Durbin DO at [facility] Plate Right: Hip J&J- DEPUY SYNTHES .414 / / Low Prof Lckng Screw F/Im Nail Implanted:Qty : 1 on 09/23/2022 by Dahlia Durbin DO at [facility] Right: Hip 10/07/2031 DEPUY SYNTHES-04.04 5.334S / / [id number] 5.0mm Locking Screw.26mm Implanted:Qty : 1 on 09/23/2022 by Dahlia Durbin DO at [facility] Right: Hip SYNTHES-42.23 1.226 / / 5.0mm Locking Screw.26mm Implanted:Qty : 1 on 09/23/2022 by Dahlia Durbin DO at [facility] Right: Hip SYNTHES-42.23 1.226 / / 5.0mm Locking Screw, 28mm Implanted:Qty : 1 on 09/23/2022 by Dahlia Durbin DO at [facility] Right: Hip SYNTHES-42.23 1.228 / / 5.0mm Locking Screw, 18mm Implanted:Qty : 1 on 09/23/2022 by Dahlia Durbin DO at [facility] Right: Hip SYNTHES-42.23 1.018 / / 5.0mm Locking Screw, 28mm Implanted:Qty : 1 on 09/23/2022 by Dahlia Durbin DO at [facility] Right: Hip SYNTHES-42.23 1.228 / / 5.0mm Locking Screw..16mm Implanted:Qty : 1 on 09/23/2022 by Dahlia Durbin DO at [facility] Right: Hip SYNTHES-42.23 1.016 / / 5.0mm Locking Screw..16mm Implanted:Qty : 1 on 09/23/2022 by Dahlia Durbin DO at [facility] Right: Hip SYNTHES-42.23 1.016 / / 5.0mm Locking Screw, 18mm Implanted:Qty : 1 on 09/23/2022 by Dahlia Durbin DO at [facility] Right: Hip SYNTHES-42.23 1.018 / / 5.0mm Locking Screw, 28mm Implanted:Qty : 1 on 09/23/2022 by Dahlia Durbin DO at [facility] Right: Hip SYNTHES-42.23 1.228 / / 34 Mm Variable Angle Locking Screw Implanted:Qty : 1 on 09/23/2022 by Dahlia Durbin DO at [facility] Right: Hip SYNTHES-42.23 1.234 / / 32 Mm- 5.0 Variable Angle Locking Implanted:Qty : 1 on 09/23/2022 by Dahlia Durbin DO at [facility] Right: Hip SYNTHES-42.23 1.232 / / 3.5 Va Locking Attachment Plate Implanted:Qty : 1 on 09/23/2022 by Dahlia Durbin DO at [facility] Right: Hip SYNTHES-02.22 1.174 / / Procedures Procedure Name Priority Date/Time Associated Diagnosis Comments LIPID PANEL Routine 08/24/2023 12:00 PM CDT Type 2 diabetes mellitus with diabetic polyneuropathy, without long-term current use of insulin ([facility]) Mixed hyperlipidemia HEMOGLOBIN A1C Routine 08/24/2023 12:00 PM CDT Type 2 diabetes mellitus with diabetic polyneuropathy, without long-term current use of insulin ([facility]) Mixed hyperlipidemia MICROALBUMIN/CREATI NINE RATIO, RANDOM UR Routine 08/24/2023 12:00 AM CDT Type 2 diabetes mellitus with diabetic polyneuropathy, without long-term current use of insulin ([facility]) COLON CANCER SCREEN, STOOL DNA Routine 06/03/2021 2:30 PM CDT Special screening for malignant neoplasms, colon XR DEXA BONE DENSITY AXIAL 1 OR MORE SITES Routine 07/15/2017 Osteopenia of multiple sites from Last 3 Months or Most Recently Relevant to Health Maintenance Results * (ABNORMAL) HEMOGLOBIN A1C (08/24/2023 12:00 PM CDT) HEMOGLOBIN A1C 6.5(H) <5.7 % of total Hgb [facility] Comment: For someone without known diabetes, [...] A1c for diagnosis of diabetes for children. ESTIMATED AVERAGE GLUCOSE (MG/DL) 140 mg/dL [facility] ESTIMATED AVERAGE GLUCOSE (MMOL/L) 7.7 mmol/L [facility] Comment: This test was performed on the Alessio stanley c503 platform. Effective 05/25/23, a change in test platforms from the Dunlap Liner Checker to the Alessio stanley c503 may have shifted HbA1c results compared to historical results. Based on laboratory validation testing conducted at [facility], the Alessio platform relative to the Dunlap [...] platforms is not recommended. Test Performed at: [facility] [address] [address] [place] [address] [facility] Blood 08/24/2023 12:0 0 PM CDT 08/24/2023 12:00 PM CDT us Aneudy Cheung MD CHEMISTRY ORDERABLES Final Res ult [facility] [phone] [facility] [address] [address] [place] [address] * (ABNORMAL) LIPID PANEL (08/24/2023 12:00 PM CDT) CHOLESTEROL 240(H) <200 mg/dL [facility] HDL 50 > OR = 50 mg/dL [facility] TRIGLYCERIDE 112 <150 mg/dL [facility] LDL CALCULATED 166(H) mg/dL (calc) [facility] Comment: Reference range: <100 Desirable range <100 mg/dL for primary prevention; <70 mg/dL for patients with CHD or diabetic patients with > or = 2 CHD risk factors. LDL-C is now calculated using the Viktoria calculation, which is a validated novel method providing better accuracy than the Friedewald equation in the estimation of LDL-C. Mike SS et al. JEANNIE. 2013;310(19): 1991-4017 (http://education.centrose/faq/FRX099) CHOL/HDL RATIO 4.8 <5.0 (calc) Deep [facility] NON-HDL CHOLESTEROL 190(H) <130 mg/dL (calc) [facility] Comment: For patients with diabetes plus 1 major ASCVD risk factor, treating to a non-HDL-C goal of <100 mg/dL (LDL-C of <70 mg/dL) is considered a therapeutic option. Test Performed at: [facility] [address] [address] [place] [address] [facility] Blood 08/24/2023 12:0 0 PM CDT 08/24/2023 12:00 PM CDT us Aneudy Cheung MD CHEMISTRY ORDERABLES Final Res ult [facility] [phone] [facility] [address] [address] [place] [address] * MICROALBUMIN/CREATININE RATIO, RANDOM UR (08/24/2023 12:00 AM CDT) Creatinine, Urine 140 20 - 275 mg/dL [facility] MICROALBUMIN, URINE 0.8 See Note: mg/dL [facility] Comment: Reference Range: Reference Range Not established MICROALBUMIN/CREAT RATIO, UR 6 <30 mg/g creat [facility] Comment: The ADA defines abnormalities in albumin excretion as follows: Albuminuria Category Result (mg/g creatinine) Normal to Mildly increased <30 Moderately increased 30-299 Severely increased > OR = 300 The ADA recommends that at least two of three specimens collected within a 3-6 month period be abnormal before considering a patient to be within a diagnostic category. Test Performed at: [facility] [address] [facility] [address] [facility] MD Urine URINE SPECIMEN OBTAINED BY CLEAN CATCH PROCEDURE / Unknown 08/24/2023 08/25/2023 6:40 AM CDT Aneudy Cheung MD URINE ORDERABLES Final Result [facility] [phone] [facility] [address] [place] [place] [address] * COLON CANCER SCREEN, STOOL DNA (06/03/2021 2:30 PM CDT) COLOGUARD RESULT Negative Negative [facility] Comment: NEGATIVE TEST RESULT. A negative Cologuard result indicates a low likelihood that a colorectal cancer (CRC) or advanced adenoma (adenomatous polyps with more advanced pre-malignant features) is present. The chance that a person with a negative Cologuard test has a colorectal cancer is less than 1 in 1500 (negative predictive value >99.9%) or has an advanced adenoma is less than 5.3% (negative predictive value 94.7%). These data are based on a prospective cross-sectional study of 10,000 individuals at average risk for colorectal cancer who were screened with both Cologuard and colonoscopy. (Julianne Mina. et al, N Engl J Med 2014;370(14):3735-0769) The normal value (reference range) for this assay is negative. COLOGUARD RE-SCREENING RECOMMENDATION: Periodic colorectal cancer screening is an important part of preventive healthcare for asymptomatic individuals at average risk for colorectal cancer. Following a negative Cologuard result, the [place] [employer] Society and U.S. Multi-Society Task Force screening guidelines recommend a Cologuard re-screening interval of 3 years. References: [place] [employer] Guideline for Colorectal Cancer Screening: https://www.cancer.org/cancer/wbuwh-iwnjxf-mabzek/ftvkneqhw-ycrzetjpl-jadvcdp/ac s-rec ommendations.html.; Cody DK, Gerardo RAMÍREZ, Genny HERBERT, Colorectal Cancer Screening: Recommendations for Physicians and Patients from the U.S. Multi-Society Task Force on Colorectal Cancer Screening , Am J Gastroenterology 2017; 112:5260-9316. TEST DESCRIPTION: Composite algorithmic analysis of stool DNA-biomarkers with hemoglobin immunoassay. Quantitative values of individual biomarkers are not [...] (Julianne Middleton al, N Engl J Med 2014;370(14):7925-2142.) Cologuard may produce a false negative or false positive result (no colorectal cancer or precancerous polyp present at colonoscopy follow up). A negative Cologuard test result does not guarantee the absence of CRC or advanced adenoma (pre-cancer). The current Cologuard screening interval is every 3 years. ([place] [employer] Society and U.S. Multi-Society Task Force). Cologuard performance data in a 10,000 patient pivotal study using colonoscopy as the reference method can be accessed at the following location: www.[employer]/results. Additional description of the Cologuard test process, warnings and precautions can be found at www.cologuard.com. Stool STOOL SPECIMEN / Unknown 06/03/2021 2:30 PM CDT 06/04/2021 9:14 PM CDT Aneudy Cheung MD BODY FLUIDS AND STOOLS Final R [facility] CLIA # [id number] [address] , [address] [place] [address] * (ABNORMAL) XR DEXA BONE DENSITY AXIAL 1 OR MORE SITES (07/15/2017) Anatomical Region Laterality Modality Other Aneudy Cheung MD DIAGNOSTIC IMAGING ORDERABLES Final Result from Last 3 Months or Most Recently Relevant to Health Maintenance Insurance MEDICARE PART A AND B [employer] Medicare Part D Advance Directives For more information, please contact: [phone] * Full Code (Latest Code Status on [...] 11:27 AM 01/23/2022 11:39 AM Care Teams Triple Drum Operator Relationship Specialty Start Date End Date Aneudy Cheung MD [address] [place] [phone] PCP - General Internal Medicine 09/03/15
--- OUTSIDE RECORDS SUMMARY | 2024-05-16 12:01 | XMS_ITS | Referral Summary ---
Author Organization [employer] Address [address] [place] [address] Phone Care Team Providers Care Rn Security Name Role Phone Aneudy Cheung MD Primary Care Provider [phone] Allergies Active Allergy Reactions Criticality Noted Date [...] (eye irritation). Indications: eye irritation 03/09/19 Active lnrxupuscmpm-Tt-jh on-minerals ([facility]) 27-0.4 mg tabletIndications: vitamin [...] Advance Directives For more information, please contact: [phone] (7:30 AM - 5PM [facility], 7 days a week) * Full Code (Latest Code Status on File) Date Activated Date Inactivated Comments 09/27/2022 2:12 PM Care Teams Rn Security Relationship Specialty Start Date End Date Aneudy Cheung MD [address] [address] PCP - General Internal Medicine 09/25/22
== END 2024-05-16 10:16 | disposition home or self-care (01) ==
PROVIDERS: PCP Nurse Practitioner Family; Visit Provider Nurse Practitioner Family
DX: R60.0 Localized edema (principal)
CPT/HCPCS: 93970